=== PATIENT | female | born 1945 | race Caucasian/White ===

== ENCOUNTER 2024-11-29 10:44 | Outpatient (CLI) | payer MEDICARE, SELFPAY ==
--- OUTSIDE RECORDS SUMMARY | 2024-11-29 02:30 | XMS_ITS | Continuity of Care Document ---
Author Organization [facility] Address [address] [place] [address] Phone Care Team Providers Care Route Sales Manager Name Role Phone Surinder Marcial MD, FACS Unavailable Unavailab le Allergies, Adverse Reactions, Alerts Substance Reaction Status Criticality Sulfa (Sulfonamide Antibiotics) Active No Information Medications Medication Instructions Dosage Effective Dates (start - stop) Status Comments Zantac 150 mg Tab take 1 tablet (150MG) by ORAL route 2 times every day - Active Amitriptyline 25 mg Tab take 1 tablet (25MG) by ORAL route every day at bedtime 25 MG - Active Atorvastatin 20 mg Tab take 1 tablet (20MG) by ORAL route every day 20 MG - Active Benicar 20 mg Tab take 1 tablet (20MG) by ORAL route every day 20 MG - Active Arthrotec 50 50 mg-200 mcg Tab take 1 tablet by ORAL route 3 times every day 1.00 tablet - Active Flaxseed Oil 1,000 mg Cap - Active Fish Oil 1,000 mg Cap - Active Procedures Procedure Date Post-op Follow-up Visit Post-op Follow-up Visit Post-op Follow-up Visit Removal Of Eye Lesion Post-op Follow-up Visit Post-op Follow-up Visit Removal Of Eye Lesion Office/outpatient Visit, [facility] Certified EMR Advance Directives Directive Yes / No Effective Date File Name Resuscitation Not Answered N/A N/A Life Support Not Answered N/A N/A Intubation Not Answered N/A N/A Antibiotics Not Answered N/A N/A IV Fluid Support Not Answered N/A N/A Tube Feed Not Answered N/A N/A Other Directive N/A N/A WARNING:The information contained in this section is historical and is provided for information only and does not constitute a legal document or any assurance that the information is still accurate. Please verify the information with the carr of the legal document before using it for clinical purposes. Encounters Encounter Description Practice Location Reason(s) For Visit Diagnoses Date Provider Providers Copied on Encounter [facility] [address] [facility], [address], [place], [place], [address], tel:[phone] SEC [place] Profession[place] blurry vision (chief complaint) No Information 3 Aggie Cadena. [facility] [address], [address], [place], [place], [address], [place]. tel:[phone] Referring Provider: Surinder Ryan, [email or web address], [place], [address]. tel:[phone] [facility], [facility] [address], [place], [place], [address], tel:[phone] SEC [place] Profession[place] a comprehensiv e exam (chief complaint) FOLLOW-UP SURGERY NOS 2 Wankum Davon. [address] [facility] [place], [place], [address], [place]. tel:[phone] Referring Provider: Surinder Ryan, [email or web address], [place], [address]. tel:[phone] [facility] [address] [facility], [facility] [address], [place], [place], [address], tel:[phone] SEC [place] Profession[place] a comprehensiv e exam (chief complaint) No Information 0 2 Wankum Davon. [address] [facility], [facility] [address], [place], [place], [address], [place]. tel:[phone] [facility], [address], [place], [place], [address], [place] tel:[phone] SEC [facility] [place] No Information Dec-0 7-201 [address] Agg[address] Surinder[address] [place] [address] [employer] [facility], [address], [place], [place], [address], [place]. tel:[phone] Referring Provider: Crys Marmolejo OD, [address] [facility], [place], [address]. tel:[phone] [facility], [address], [place], [place], [address], [place] [phone] SEC [place] Profession[place] eyes doing well, without complaint. (chief complaint) No Information Nov-1 3-201 2 [place] Surinder. [address] [place] [address], [address], [place], [place], [address], [place]. tel:[phone] [facility], [address], [place], [place], [address], [place] [phone] SEC [place] Profession[place] a comprehensiv e exam (chief complaint) FOLLOW-UP SURGERY NOS Oct-0 9-201 2 Aggie Surinder. [address] [place] [address], [address], [place], [place], [address], [place]. tel:[phone] Referring Provider: Crys Marmolejo OD, [address] [facility], [place], [address]. tel:[phone] [facility], [address] [place] [address] [address], [place], [place], [address], [place] tel:[phone] SEC [facility] [place] No Information Oct-0 5-201 2 [place] Surinder. [address] [place] [address], [address], [place], [place], [address], [place]. tel:[phone] Referring Provider: Crys Marmolejo OD, [address] [facility], [place], [address]. tel:[phone] Office/outpa tient Visit, [facility], [address] [facility], [place], [place], [address], [place] tel:[phone] SEC Brian Hardin burning (chief complaint) NODULAR CORNEA DEGEN Sep- 0-201 2 Aggie Cadena. [address], [address], [place], [place], [address], [place]. tel:[phone] Family History Family Member Type Diagnosis Age At Onset Mother Problem (finding) glaucoma Payers Payer name Insurance type Covered green party ID Authoriza tion(s) No Information Social History Type Description Quantity Date Captured Comments Alcohol Use Details Unknown Caffeine Use Details Unknown Tobacco Use Status No Information Smoking Status No Information Sex Female Chief Complaint And Reason For Visit From encounter dated '11/08/2012 14:00'. blurry vision (chief complaint) Reason For Referral Reason For Referral No Information History Of Present Illness Encounter Date Complaint History Of Prese nt Illness No Information Functional Status Date Functional Assessmen t No Information Instructions Date Instruction Additional Infor chelsey - 1 yr complete Related to FOLLO W-UP SURGERY NOS FOLLOW-UP SURGERY NO S, OS -Early Drusen OU - Discussed post op course with pt. Rec increase ATs, rec AREDS samples given Related to FOLLOW-UP SURGERY NOS FOLLOW-UP SURGERY NO S, OS - BCL in place-5 day s/p SK-established, stable - will continue to monitor - BCL removed. Recommends ATs for dry surface OU. D/c Tobramycin. Taper Pred 1% BID next few days then d/c. Pt to see LAG one more time. Instructed to return to clinic if eye gets painful for new BCL. Related to FOLLOW-UP SURGERY NOS - 1 month w/ LAG Related to FOLL OW-UP SURGERY NOS FBS s/p SK with oily buildup on co - new cl placedAT prn - keep appt - 4-6 months follow up Related t o FOLLOW-UP SURGERY NOS FOLLOW-UP SURGERY NO S, OD - Ok to continue using ursula and ATs as needed. Discussed proceeding with SK OS if desired, Pt understands this can be done when desired.Discussed incomplete lid closure when sleeping. Pt aware she can also tape her eyelids, and wear goggles, air humidifier are some of the more mild options Related to FOLLOW-UP SURGERY NOS FOLLOW-UP SURGERY NO S, OD - BCL removed at slit lamp. CSM and decrease to BID tomorrow, then DC but continue ATs. Discussed refractive status after SK. Pt can proceed if desired with SK OS, pt understands r/a/b and will schedule if desired. 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 Pt understands r/a/b of this procedure and pt elects to have SK OD 1st. Discussed CTL wear in the future pt has worn RGPs in the past.Letter dictated to Dr. 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
--- OUTSIDE RECORDS SUMMARY | 2024-11-29 02:30 | XMS_ITS | Encounter Summary ---
Author Organization [facility] Address [address] [place] [address]. [place] [address] [place] [address] Care Team Providers Care Kennel Attendant Name Role Phone Lester Britt MD Primary Care Provider Jean Vogel MD Unavailable Unavailable Paco Casey MD Unavailable [phone] Encounter Details Date Type Department Care Team (Late st Contact Info) Description 04/08/2019 Abstract SFL CONVERSION [address] [place] [address] , Generic Conversion, Social History Tobacco Use Types Packs/Day Years Used Date Smoking Tobacco: Never Smokeless Tobacco: Never Comments Unknown Sex and Gender Information Value Date Recorded Sex Assigned at Not on file Legal Sex Female 9:02 PM CDT Gender Identity Not on file Sexual Orientation Not on file documented as of this encounter Plan of Treatment Not on file documented as of this encounter Visit Diagnoses Not on filedocumented in this encounter Care Teams Kennel Attendant Relationship Specialty Start Date End Date Lester Britt MD [address] [place] [phone] PCP - General FAMILY PRACTICE 09/15/18 Jean Vogel MD [address] [place] [phone] INTERVENTIONAL CARDIOLOGY 09/15/18 10/04/19 Paco Casey MD [address] [place] [address] [address] [place] Environmental Sampler CARDIOVASCULAR DISEASE 10/05/19 documented as of this encounter
--- OUTSIDE RECORDS SUMMARY | 2024-11-29 02:30 | XMS_ITS | Data Portability ---
Author Organization [facility], [address] [facility] ([place]) Address [address] [place] [address] Care Team Providers Care Procurement Director Name Role Phone ABEL MEYERS Primary Care Provider Assessment Encounter Date Assessment Date Assessment LastModified by Organization Details LastModified Time 07/11/2024 07/11/2024 History: Bing giraldo s a 78-year-old female referred by Dr. Meyers regarding left knee pain. She has had left knee pain and stiffness for about 3 months. The pain varies between a 2 and an 8/10. The pain is worse with walking and better with rest and ice. She says it is an achy type pain that is sharp occasionally. It does occur with standing. It pops occasionally. There is no catching or locking. The pain is constant. It does radiate down her leg. It is hard to walk, as well as have pain at night. She says she has tried meloxicam, which does help her mood better, as well as lotions and creams. She had 6 weeks of physical therapy; it did not help. She has not had any injections. Social History: Denies smoking and alcohol use. She is retired. Review of Systems: Complete 12-point review of systems is negative except for heartburn, constipation, joint stiffness, swelling, weakness, pain, and back pain. Intake form dated today was independently reviewed and signed for review of symptoms, past medical history, social history, surgical history and family medical history. Physical examination: Head is atraumatic, normocephalic. Mood and affect are appropriate. The patient answers questions appropriately. The eyes are without scleral icterus. The chest exam shows no use of accessory muscles. The patient has full range of motion of the lumbar spine. Patient has normal sensation throughout the bilateral lower extremities. The skin is without edema or jaundice bilaterally. The lumbar exam shows no pain with straight leg raise testing. She has pain along the medial joint line, left knee, negative right knee. Pain with Aneesh's maneuver of the left knee, negative right knee. There is mild swelling of the left knee, negative right knee. No varus or valgus laxity of the bilateral knees. X-rays of the left knee were independently reviewed from [facility] and show moderately severe left knee patellofemoral joint osteoarthritis. Assessment: 1. Moderately severe left knee patellofemoral joint osteoarthritis, failed physical therapy. Plan: Clinical findings were discussed with the patient. I recommended an MRI of the left knee to make sure she does not have a stress fracture of the medial compartment versus a meniscus tear. She will follow up after MRI to discuss treatment options. [email or web address] Not available 07/11/2024 16:17:08 08/01/2024 08/01/2024 History: Bing returns for follow-up of her left knee. Overall, her left knee is about the same. It is about a 3/10. She had failed physical therapy. She has had pain now for the past 4 months. She says it is worse with walking and better with rest and ice. It varies between a 2 and an 8/10. She says that the pain is mostly medial. It does radiate down her leg. She is also getting some pain in her hip. She has tried meloxicam as well as lotions and creams. She had physical therapy for 6 weeks without relief of symptoms, but no injections. Physical Examination: She has 1+ valgus instability of the left knee, negative right knee. She has pain along the medial joint line left knee, negative right knee. She walks with a mildly antalgic gait. Her EHL is 5/5. X-rays of the left knee and MRI were independently reviewed from [facility] and show a left knee medial femoral condyle insufficiency fracture. The MRI is independently reviewed and shows a medial meniscus root tear as well as a medial femoral condyle insufficiency fracture as well as severe arthritis in the medial compartment as well as the patellofemoral compartment. Assessment: 1. Left knee medial femoral condyle insufficiency fracture. 2. Left knee medial and patellofemoral compartment osteoarthritis. 3. Medial meniscus root tear. Plan: Clinical and radiographic findings were discussed with the patient. I recommended conservative management of the left knee to unload the medial femoral condyle insufficiency fracture. I think this is likely caused from the medial meniscus root tear. I did recommend conservative treatment with the auto adjudication specialist brace and minimal activity at this time. Her other option was using a walker and keeping weight off her leg. She chose the brace. She is going to follow-up in 1 month with repeat x-rays, 4 views standing, of the left knee. anc Not available 08/01/2024 10:51:57 09/19/2024 09/19/2024 History: Bing returns for follow-up of her left knee. She is still having some discomfort in her left knee, but it is much improved since wearing the auto adjudication specialist brace. She has not done any physical therapy. She says there is still a little bit of swelling. She denies any fever, chills, catching or locking. Physical Examination: She has minimal pain along the medial joint line left knee, negative right knee. No varus or valgus laxity of the right knee. Valgus laxity 1+ of the left knee. She walks with a minimally antalgic gait. Full range of motion of the left knee. X-rays of the left knee were independently reviewed today from [facility], 4 views standing, compared to 3 views non-weightbearing from April, as well as the MRI of the left knee from early September. This showed the medial meniscus root tear with medial femoral condyle insufficiency fracture. I can now see the medial femoral condyle insufficiency fracture on x-ray. There is evidence of healing. There is moderate medial compartment osteoarthritis noted. Assessment: 1. Moderately severe left knee medial compartment osteoarthritis with history of medial meniscus root tear with resulting medial femoral condyle insufficiency fracture, healing. Plan: Clinical findings were discussed with the patient. I recommended conservative management of her left knee. She should continue to wear her auto adjudication specialist brace. I recommended she start some physical therapy for strengthening. Follow up again in 2 months with x-rays of the left knee, 4 views standing. anc Not available 09/19/2024 22:34:15 11/21/2024 11/21/2024 History: Bing returns for follow-up of her left knee. Overall she feels more than 50% better. She has been discharged from formal physical therapy and has transition to home exercise program. She is still wearing her auto adjudication specialist brace under her clothing. She takes meloxicam rarely for pain. Her pain is only a 3 out of 10 with exertion. She says that she has decreased her walking overall. She does feel slightly unstable if she does not wear her brace but there is no catching or locking. Physical examination: She has full range of motion of the right knee from 0 to 130 degrees. The left knee shows 0 to 120 degrees range of motion. There is pain with deep flexion and Aneesh's maneuver of the left knee and mild on the right knee. There is a mild effusion of the left knee and negative on the right knee. She walks with a nonantalgic gait. Ankle dorsiflexion is 5 out of 5 bilaterally. There is 1+ valgus laxity of the left knee. X-rays of the left knee were independently reviewed from [facility] today. Previous radiographs as well as MRI of the left knee from some months ago and show a left knee medial meniscus root tear, medial femoral condyle insufficiency fracture. There is no progression of the fracture on the plain radiographs obtained today. Assessment: 1. Left knee moderately severe osteoarthritis with medial meniscus root tear and healing medial femoral condyle insufficiency fracture. Plan: Clinical and radiographic findings were discussed the patient. I recommended she slowly transition back to walking without a brace. She will continue with a home exercise program. She will follow-up again in 3 months with x-rays 4 views of the left knee standing. [email or web address] Not available 11/21/2024 11:20:46 Plan of Treatment Reminders Order Date Submit Date Provider Last Modified By Organization Details Last Modified Time Details Appointments Establish ed Patient 10.EST 2024 10:00A M Dr. Marvel Islas Not available Not available Not available Lab None recorded. Referral None recorded. Procedures None recorded. Surgeries None recorded. Imaging None recorded. Medication Orders None recorded. Patient TargetsNo targets recorded. Patient InstructionsNo instructions recorded. Reason for Referral None Reported. Results Created Date Observation Date Name Description Value Unit Range Abnormal Flag Note LastModifiedBy Organization Detail LastModifiedTime 07/10/20 24 04/12/2024 XR, knee, 3 view No observ ation record ed. [email or web address] Not Available 2023 10:20:10 08/10/20 24 04/12/2024 XR, knee, 3 view No observ ation record ed. [email or web address] Not Available 2023 10:10:25 09/05/20 MRI, knee, w/o contr ast No observ ation record ed. [address] (Radiology) [address] [place], [address], 09/17/2024 09:38:44 09/15/20 24 07/25/2024 MRI, lower extre mity joint (s), w/o contr ast No observ ation record ed. [place] [id number] [place], [address], 11/11/2024 21:01:04 Result Notes None recorded. Problems Name Problem SNOMED Code Status Onset Date Resolution Date Notes Provider Name and Address Organization Details Recorded Time Osteoarthri tis of left knee joint 5328405328109 09 Active 2023 Marvel Islas MD [address] [place] [address], [phone], [facility] 4 08:50:24 Closed fracture distal femur, medial condyle 342003401 Active 2023 Marvel Islas MD [address] [place] [address], [phone], [facility] 4 09:15:08 Tear of medial meniscus of knee 362736294 Active 2023 Marvel Islas MD [address] [place] [address], [phone], [facility] 4 09:39:09 Problem Notes None recorded. Procedures Surgical History Date Name Laterality Status Provider Name and Address Organization Details Recorded Time Colonoscopy with biopsy completed Not Available Health Note 11/20/2024 14:15:45 Removal of gallbladder completed Not Available Health Note 11/20/2024 14:15:45 Removal of tonsils completed Not Available Health Note 11/20/2024 14:15:45 Imaging Results Imaging Date Name Status LastModified by Organiz ation Details LastModified Time 04/12/2024 XR, knee, 3 view completed [place] [id number] Information not available 07/11/2024 10:20:10 04/12/2024 XR, knee, 3 view completed [email or web address] Information not available 08/10/2024 10:10:25 09/05/2024 MRI, knee, w/o contrast completed [address] (Radiology) [address] [place], [address], 09/17/2024 09:38:44 07/25/2024 MRI, lower extremity joint(s), w/o contrast completed [address] [place], [address], 11/11/2024 21:01:04 Procedure Notes None recorded. Medical Equipment None Reported. Allergies Allergen ID Allergen Name Allergen Category Reaction Reaction Severity Criticality Documentation Date Start Date Code Code System Note Provider Name and Address Organization Details Recorded Time [id number] 2824e Substance with sulfonami de structure and antibacte rial mechanism of action (substanc e) medicatio n Not available Not available Not available 11/29/20232019 30676 8003 SNOMED Not Available Not Available Not Available [id number] 2932655d4 2824e Product containin g angiotens in-conver ting enzyme inhibitor (product) medicatio n Not available Not available Not available 11/29/20232019 83008 009 SNOMED Not Available Not Available Not Available Medications Name Sig Start Date Stop Date Status Note LastModified by Organization Details LastModified Time nystatin 100,000 unit/mL oral suspension SWISH AND SPIT 5 ML BY MOUTH THREE TIMES DAILY active Not Available Not Available No t Available atorvastatin 20 mg tablet active Not Available Not Available Not Available atorvastatin 10 mg tablet active Not Available Not Available Not Available fluconazole 150 mg tablet TAKE 1 TABLET BY MOUTH NOW AND REPEAT IN 72 HOURS active Not Available Not Available Not Available fluconazole 200 mg tablet TAKE 1 TABLET BY MOUTH A ONE TIME DOSE active Not Available Not Available No t Available meloxicam 15 mg tablet active Not Available Not Available No t Available sucralfate 1 gram tablet TAKE 1 TABLET BY MOUTH 4 TIMES DAILY BEFORE MEAL(S) AND AT BEDTIME active Not Available Not Available N ot Available penicillin V potassium 500 mg tablet active Not Available Not Available Not Available levofloxacin 250 mg tablet TAKE 1 TABLET BY MOUTH ONCE DAILY FOR 3 DAYS active Not Available Not Available No t Available amoxicillin 875 mg tablet TAKE 1 TABLET BY MOUTH TWICE DAILY active Not Available Not Available No t Available lisinopril 10 mg tablet active Not Available Not Available Not Available losartan 25 mg tablet TAKE 1 TABLET BY MOUTH ONCE DAILY active Not Available Not Available No t Available omeprazole 20 mg capsule,blaze yed release TAKE 1 CAPSULE BY MOUTH TWICE DAILY active Not Available Not Available No t Available amoxicillin 250 mg capsule TAKE 1 CAPSULE BY MOUTH TWICE DAILY active Not Available Not Available No t Available dicyclomine 10 mg capsule TAKE 1 CAPSULE BY MOUTH 4 TIMES DAILY active Not Available Not Available Not Available amoxicillin 875 mg-potassium clavulanate 125 mg tablet TAKE 1 TABLET BY MOUTH TWICE DAILY FOR 10 DAYS active Not Available Not Available No t Available Prilosec OTC 20 mg tablet,delay ed release active Not Available Not Available N ot Available nitrofuranto in monohydrate/ macrocrystal s 100 mg capsule TAKE 1 CAPSULE BY MOUTH TWICE DAILY active Not Available Not Available No t Available Paxlovid 300 mg (150 mg x 2)-100 mg tablets in a dose pack TAKE 3 TABLETS TOGETHER (TWO 150 MG NIRMATRELVI R TABLETS AND ONE 100 MG RITONAVIR TABLET) BY MOUTH TWICE DAILY FOR 5 DAYS. active Not Available Not Available No t Available Vitals Date Recorded Body height Provider Name an d Address Organization Details Last Updated DateTime 07/11/2024 160.02 cm [facility] 07/11/2024 10:09:24 Date Recorded Body mass index (BMI) Body weight Provider Name and Address Organization Details Last Updated DateTime 07/11/2024 27.1 kg/m2 26891.63 g [facility] 07/11/2024 10:09:27 Date Recorded Heart rate Provider Name an d Address Organization Details Last Updated DateTime 07/11/2024 70 /min [facility] 07/11/2024 10:09:37 Date Recorded Oxygen saturation Oxygen saturation in Arterial blood by Pulse oximetry Provider Name and Address Organization Details Last Updated DateTime 07/11/2024 97 % 97 % Nia [facility] 07/11/2024 10:09:40 Date Recorded Body height Provider Name an d Address Organization Details Last Updated DateTime 08/01/2024 160.02 cm Maria Antonia Reyes [facility] 08/01/2024 09:03:21 Date Recorded Body mass index (BMI) Body weight Provider Name and Address Organization Details Last Updated DateTime 08/01/2024 26.9 kg/m2 52092.04 g Maria Antonia Reyes [facility] 08/01/2024 09:03:30 Date Recorded Heart rate Provider Name an d Address Organization Details Last Updated DateTime 08/01/2024 97 /min Maria Antonia Reyes [facility] 08/01/2024 09:03:41 Date Recorded Oxygen saturation Oxygen saturation in Arterial blood by Pulse oximetry Provider Name and Address Organization Details Last Updated DateTime 08/01/2024 97 % 97 % Maria Antonia Reyes [facility] 08/01/2024 09:03:49 Date Recorded Body height Provider Name an d Address Organization Details Last Updated DateTime 09/19/2024 160.02 cm Nia [facility] 09/19/2024 10:52:33 Date Recorded Body mass index (BMI) Body weight Provider Name and Address Organization Details Last Updated DateTime 09/19/2024 26.9 kg/m2 66243.04 g Nia [facility] 09/19/2024 10:52:41 Date Recorded Heart rate Provider Name an d Address Organization Details Last Updated DateTime 09/19/2024 66 /min Nia [facility] 09/19/2024 10:52:51 Date Recorded Oxygen saturation Oxygen saturation in Arterial blood by Pulse oximetry Provider Name and Address Organization Details Last Updated DateTime 09/19/2024 98 % 98 % [facility] 09/19/2024 10:52:56 Date Recorded Body height Provider Name an d Address Organization Details Last Updated DateTime 11/21/2024 160.02 cm Gwendolyn Murillo [facility] 11/21/2024 10:53:38 Date Recorded Body mass index (BMI) Body weight Provider Name and Address Organization Details Last Updated DateTime 11/21/2024 26.7 kg/m2 23327.45 g Gwendolyn Murillo [facility] 11/21/2024 10:53:44 Date Recorded Heart rate Provider Name an d Address Organization Details Last Updated DateTime 11/21/2024 65 /min Gwendolyn Murillo [facility] 11/21/2024 10:53:55 Date Recorded Oxygen saturation Oxygen saturation in Arterial blood by Pulse oximetry Provider Name and Address Organization Details Last Updated DateTime 11/21/2024 99 % 99 % Gwendolyn [facility] 11/21/2024 10:53:58 Date Recorded Systolic blood pressure Diastolic blood pressure Provider Name and Address Organization Details Last Updated DateTime 07/11/2024 171 mm[Hg] 81 mm[Hg] Nia [facility] 07/11/2024 10:09:32 Date Recorded Systolic blood pressure Diastolic blood pressure Provider Name and Address Organization Details Last Updated DateTime 08/01/2024 156 mm[Hg] 83 mm[Hg] Maria Antonia Reyes [facility] 08/01/2024 09:03:36 Date Recorded Systolic blood pressure Diastolic blood pressure Provider Name and Address Organization Details Last Updated DateTime 09/19/2024 168 mm[Hg] 79 mm[Hg] Nia [facility] 09/19/2024 10:52:48 Date Recorded Systolic blood pressure Diastolic blood pressure Provider Name and Address Organization Details Last Updated DateTime 11/21/2024 156 mm[Hg] 92 mm[Hg] Gwendolyn Murillo [facility] 11/21/2024 10:53:52 Social History Question Answer Notes LastModified by Organizat ion Details LastModified Time Tobacco Smoking Status Never Smoker Not Available Health Note 11/20/2024 14:15:45 Do You Have An Advance Directive? Yes [place] [id number] Information not available 11/20/2024 What Is Your Level Of Alcohol Consumption? None [email or web address] Information not available 11/20/2024 What Is Your Level Of Caffeine Consumption? Moderate [email or web address] Information not available 11/20/2024 What Is Your Code Status? Other [email or web address] Information not available 11/20/2024 Are You Currently Employed? No [email or web address] Information not available 11/20/2024 What Is Your Occupation? Retired [email or web address] Information not available 11/20/2024 How Many Times Per Week Do You Exercise? 1-2 Times Per Week [email or web address] Information not available 11/20/2024 What Was The Date Of Your Most Recent Tobacco Screening? 11/21/2024 [email or web address] Information not available 11/20/2024 What Is Your Relationship Status? [email or web address] Information not available 11/20/2024 Do You Use Any Illicit Or Recreational Drugs? No [email or web address] Information not available 11/20/2024 Sex: Unknown Functional Status Question Answer Note LastModified by Organization D etails LastModified Time What is your exercise level? Moderate [email or web address] Information not available 11/20/2024 Mental Status None recorded. Family History Relationship Description Onset Age of this Age Resolved Age Notes LastModified by Organization Details LastModified Time Mother Chronic obstructive pulmonary disease [email or web address] Not available 2024 14:15:44 Mother Heart disease [email or web address] Not available 2024 14:15:44 Mother Kidney disease [email or web address] Not available 2024 14:15:44 Sister Chronic obstructive pulmonary disease [email or web address] Not available 2024 14:15:44 Sister Hypertensive disorder [email or web address] Not available 2024 14:15:44 Sister Cerebrovascu lar accident [email or web address] Not available 14:15:44 Maternal Grandmother Chronic obstructive pulmonary disease [email or web address] Not available 2024 14:15:44 Maternal Grandmother Diabetes mellitus [email or web address] Not available 2024 14:15:44 Maternal Grandmother Heart disease [email or web address] Not available 2024 14:15:44 Maternal Grandmother Hypertensive disorder [email or web address] Not available 2024 14:15:44 Maternal Grandmother Hypercholest erolemia [email or web address] Not available 2024 14:15:44 Paternal Grandmother Chronic obstructive pulmonary disease [email or web address] Not available 2024 14:15:44 Paternal Grandmother Hypertensive disorder [email or web address] Not available 2024 14:15:44 Paternal Grandmother Hypercholest erolemia [email or web address] Not available 2024 14:15:44 Paternal Grandmother Cerebrovascu lar accident [email or web address] Not available 14:15:44 Medical History Condition Response High Blood Pressure Y COPD N Depression N Anxiety Disorder N Arthritis N Cancer N Stroke N Fibromyalgia N Kidney Disease N Attention-deficit Hyperactivity Disorder N Thyroid Problems N Anemia N Diabetes N Bleeding Disorder N Hyperlipidemia N Asthma N Seizures N Heart Disease N Osteoporosis N Gynecological HistoryNo gynecological history recorded. Obstetrics History GPAL:G 0 P 0 0 0 0 Past Encounters Encounter ID Performer Location Encounter Start Date Encounter Closed Date Diagnosis/Indication Diagnosis SNOMED-CT Code Diagnosis ICD10 Code Diagnosis Note [id number] [facility] [place] [address] 07/11/2024 10:07:04 07/11/2024 10:22:45 Osteoarthritis of left knee joint 8491712333 94790 M17.12 Additional diagnosis detail: Primary osteoarthr itis of left knee [id number] MD [facility] [place] [address] 08/01/2024 08:58:18 08/01/2024 09:17:34 Osteoarthritis of left knee joint 2736643570 77565 M17.12 Additional diagnosis detail: Primary osteoarthr itis of left knee Closed fra cture distal femur, medial condyle 023819819 S72.435D Additional diagnosis detail: Closed nondisplac ed fracture of medial condyle of left femur with routine healing, subsequent encounter [id number] MD [facility] [place] [address] 09/19/2024 10:23:09 09/19/2024 11:10:27 Closed fracture distal femur, medial condyle 862900689 S72.435D Additional diagnosis detail: Closed nondisplac ed fracture of medial condyle of left femur with routine healing, subsequent encounter Osteoarthr itis of left knee joint 5448786280 24445 M17.12 Additional diagnosis detail: Primary osteoarthr itis of left knee Tear of me dial meniscus of knee 078790213 S83.242A [id number] Marvel Islas MD [facility] [address] [place] [address] 11/21/2024 10:19:43 11/21/2024 11:21:13 Tear of medial meniscus of knee 901011206 S83.242A Closed fra cture distal femur, medial condyle 944071732 S72.435D Additional diagnosis detail: Closed nondisplac ed fracture of medial condyle of left femur with routine healing, subsequent encounter Osteoarthr itis of left knee joint 4022759640 04459 M17.12 Additional diagnosis detail: Primary osteoarthr itis of left knee Health Concerns Section Related Observation LastModified by Organization Detai ls LastModified Time None Recorded Concern Status LastModified by Organization Details LastModified Time None Recorded Advance Directives Directive Y: Payers Encounter Date Sequence Insurance Name Policy Number Policy Escal[place] Covered Member ID Escalante Member ID Guarantor Name 07/11/2024 1 [place] Bing L Jeovanny [id number] Bing L Jeovanny 08/01/2024 1 [employer] (MEDICARE REPLACEMENT PPO) [id number] Bing L Jeovanny [id number] Bing L Jeovanny 09/19/2024 1 [employer] (MEDICARE REPLACEMENT PPO) [id number] Bing L Jeovanny [id number] Bing L Jeovanny 11/21/2024 1 [employer] (MEDICARE REPLACEMENT PPO) [id number] Bing L Jeovanny [id number] Bing L Jeovanny Notes Date Note Type Note Provider Name and Address Organization Details Recorded Time 5 text/html Bing Bower a 79 year oldfemalepresenting for care. Marvel Islas MD [address] [place] [address], [address], [facility] [facility] 11/21/2024 17:49:05 OBGyn Episode No OBEpisode recorded.
--- OUTSIDE RECORDS SUMMARY | 2024-11-29 02:30 | XMS_ITS | Clinical Summary ---
Author Organization [facility] Address [address] [place] [address]. [place] [address] [place] [address] Care Team Providers Care Youth Specialist Name Role Phone Lester Britt MD Primary Care Provider Paco Casey MD Unavailable [phone] Allergies Active Allergy Reactions Criticality Noted Date Comments Sulfa Antibiotics Unknown Medications atorvastatin 20 MG tablet Take by mouth daily. 09/05/2018 Active diclofenac-misop rostol (ARTHROTEC 50) 50-0.2 MG tablet 02/10/2018 Ac tive carvedilol 6.25 MG tablet Take 1 tablet (6.25 mg total) by mouth 2 (two) times daily. 60 tablet 12 10/06/2018 Active Active Problems Problem Noted Date Diagnosed Date Palpitations 10/05/2018 Chest pain of uncertain etiology 10/05/2018 SVT (supraventricular tachycardia) ([facility]) 10/05/2018 Mixed hyperlipidemia 10/05/2018 HTN (hypertension) Family History Medical History Relation Comments Aneurysm Mother Heart Attack Paternal Grandmother Relation Status Comments Mother Paternal Grandmother Social History Tobacco Use Types Packs/Day Years Used Date Smoking Tobacco: Never Smokeless Tobacco: Never Comments Unknown Sex and Gender Information Value Date Recorded Sex Assigned at Not on file Legal Sex Female 9:02 PM CDT Gender Identity Not on file Sexual Orientation Not on file Last Filed Vital Signs Vital Sign Reading Time Taken Comments Blood Pressure 156/85 10/05/2018 5:35 PM CORE WINDER Pulse 64 10/05/2018 5:35 PM CORE WINDER Temperature - - Respiratory Rate - - Oxygen Saturation - - Inhaled Oxygen Concentration - - Weight 70.9 kg (156 lb 6.4 oz) 10/05/2018 5:35 P M CORE WINDER Height 160 cm (5' 3 ) 10/05/2018 5:35 PM CORE WINDER Body Mass Index 27.71 10/05/2018 5:35 PM CORE WINDER Plan of Treatment Health Maintenance Due Date Last Done Comments Hepatitis C 1965 DTaP, Tdap and Td Vaccines ( 1 - Tdap) 1966 Zoster Vaccines (1 of 2) 1997 Annual Medicare Wellness Visit 2012 Dexa Scan (General) 2012 RSV Immunization or 60+ Years (1 - 1-dose 75+ series) 2022 COVID-19 Vaccine (3 - 2023-2 5 season) 2024 01/31/2021, 01/03/2021 Influenza Adult (#1) 2024 08/17/2019, 08/19/2018 Pneumococcal Vaccine: 65+ Years Completed 09/02/2018, 08/10/2018, 08/03/2017 Meningococcal B Vaccine Aged Out No l onger eligible based on patient's age to complete this topic Meningococcal Vaccine Aged Out No fantasma gala eligible based on patient's age to complete this topic RSV Immunizations Under 20 Months Aged Out No longer eligible b ased on patient's age to complete this topic Insurance [employer] Care Teams Youth Specialist Relationship Specialty Start Date End Date Lester Britt MD [address] [place] [phone] PCP - General FAMILY PRACTICE 09/15/18 Paco Casey MD [address] [place] [id number] [place] [employer] CARDIOVASCULAR DISEASE 10/05/19
--- OUTSIDE RECORDS SUMMARY | 2024-11-29 02:30 | XMS_ITS | Clinical Summary ---
Author Organization [facility] Address [address] [place] [phone] Phone Care Team Providers Care Machine Operators Name Role Phone Lester Britt MD Primary Care Provider [phone] Allergies Active Allergy Reactions Criticality Noted Date Comments Miguel Inhibitors Cough Low 12/26/2019 Latex Rash Low 12/26/2019 Sulfa Dyne Rash Low 07/19/2012 Medications atorvastatin (LIPITOR) 20 mg Oral tablet Take 10 mg by mouth late in the day. Active MAG HYDROX/AL HYDROX/SIMETH (MAALOX ORAL) Take by mouth Continuous as needed. Active simethicone (GAS-X) 125 mg Oral Cap Take 125 mg by mouth Continuous as needed. Active MULTIVITAMIN ORAL Take 1 Tab by mouth daily. Active famotidine (PEPCID) 20 mg Oral tablet Take 20 mg by mouth daily. Active omeprazole (PriLOSEC) 20 mg Capsule, Delayed Release(E.C.) Take 1 Capsule (20 mg) by mouth 2 times daily before meals. 14 Capsule 9 Active Lactobac no.41/Bifidobac t no.7 (PROBIOTIC-10 ORAL) Take by mouth. PRN Active calcium as carbonate (TUMS ES) 750 mg (300 mg elemental) Tablet, Chewable Take 300 mg by mouth daily. Active lisinopriL (PRINIVIL) 5 mg tablet Take 5 mg by mouth daily. Active Active Problems Problem Noted Date Diagnosed Date Diverticulitis 01/05/2020 Rectal bleeding 01/05/2020 Elevated LFTs 01/05/2020 Dehydration 01/05/2020 S/P colonoscopy 05/15/2019 Overview (05/15/2019): 05/15/19- Colonoscopy: no polyps. Elevated cholesterol 07/19/2012 Chronic back pain 07/19/2012 Diverticulitis of colon 07/19/2012 Overview (07/19/2012): 2006 Encounters Date Type Department Care Team Description 11/22/2024 External Device Data [facility] ABSTRACTION Provider, Abstract 11/22/2024 External Device Data [facility] ABSTRACTION Provider, Abstract from Last 3 Months Immunizations Immunization Administration Dates Next Due Influenza Seasonal Unspecified Formulation IM PNEUMOVAX (PPSV23) pneumococ serjio polysaccharide 23-valent Vaccine 08/10/2018 Family History Medical History Relation Name Comments Colon Cancer Neg Hx Social History Tobacco Use Types Packs/Day Years Used Date Smoking Tobacco: Never Smokeless Tobacco: Never Tobacco Cessation:Counseling Given: Not Answered Alcohol Use Standard Drinks/Week Comments No 0 (1 standard drink = 0.6 oz pur e alcohol) Comments No Sex and Gender Information Value Date Recorded Sex Assigned at Not on file Legal Sex Female 6:10 AM UM SPECIALIST Gender Identity Not on file Sexual Orientation Not on file Occupation Industry Job Start Date Job End Date Not on file Not on file Not on file Not on file Last Filed Vital Signs Vital Sign Reading Time Taken Comments Blood Pressure 139/72 12/27/2023 2:16 PM UM SPECIALIST Pulse 73 09/08/2022 11:50 AM UM SPECIALIST Temperature 37 ??C (98.6 ??F) 01/06/2020 12:28 PM UM SPECIALIST Respiratory Rate 18 12/09/2022 10:56 AM UM SPECIALIST Oxygen Saturation 97% 09/08/2022 11:50 AM UM SPECIALIST RA Inhaled Oxygen Concentration - - Weight 71.2 kg (157 lb) 12/27/2023 2:16 PM UM SPECIALIST Height 160 cm (5' 3 ) 12/27/2023 2:16 PM UM SPECIALIST Body Mass Index 27.81 12/27/2023 2:16 PM UM SPECIALIST Plan of Treatment Health Maintenance Due Date Last Done Comments DTAP/TDAP/TD VACCINES (1 - Tdap) 1966 ZOSTER VACCINE (1 of 2) 1997 OSTEOPOROSIS SCREENING 2012 PNEUMOCOCCAL VACCINE 65+ YEA RS (2 of 2 - PCV) 08/10/2019 08/10/2018 RSV VACCINE (60+ or ) (1 - 1-dose 75+ series) 2022 INFLUENZA VACCINE (#1) 2024 08/17/2019 COLORECTAL SCREENING Discontinued 05/15/2019, 05/15/2019, 09/28/2012 Colorectal Cancer Screening Discontinued FIT-DNA Q 3 years Discontinued FIT/FOBT Q 1 year Discontinued Flex Sig/CT Colonography Q 5 years Discontinued Medical Devices Implanted Type Area Music Writer Device Identifier Shelf Expiration Date Model / Serial / Lot Clip [employer] [id number] - Csc - [id number] Implanted:Qty: 1 on 12/29/2019 by Baltazar Nye MD at [facility] Clip N/A: Pelvis TELEFLEX- WECK CLOSURE SYS 03/12/2024 [id number] / / [id number] Description:3 clips used Procedures Procedure Name Priority Date/Time Associated Diagnosis Comments COLONOSCOPY REPORT 05/15/2019 10 :05 AM CDT from Last 3 Months or Most Recently Relevant to Health Maintenance Results * COLONOSCOPY REPORT (05/15/2019 10:05 AM CDT) Narrative Procedure Note Steven Dyer MD - 05/15/2019 10:05 AM CDT [facility] Patient Name: Bing Up Procedure Date: 05/15/2019 Date of : 1945 Admit Type: Outpatient Attending MD: Steven Dyer MD Procedure: Colonoscopy Indications: Abdominal pain in the left lower quadrant, recent episode of diverticullitis, rectal bleeding Providers: Steven Dyer MD Referring MD: Lester Britt MD Medicines: Monitored Anesthesia Care Complications: No immediate complications. Procedure: Informed consent was obtained for the procedure, including moderate sedation after risks were discussed. Based on the pre-procedure assessment, including review of the patient's medical history, medications, allergies, and review of systems, the patient was deemed to be an appropriate candidate for sedation. A timeout was performed. Continuous ECG monitoring, pulse oximetry, blood pressure monitoring, and direct observation were performed. The colonoscope was introduced through the anus and advanced to the cecum, identified by appendiceal orifice and ileocecal valve. The colonoscopy was performed with ease. The patient tolerated the procedure well. The quality of the bowel preparation was excellent. Estimated Blood Loss: None. Findings: Moderate internal hemorrhoids were found during retroflexion. Many small and large-mouthed diverticula were found in the sigmoid colon and descending colon. The was no stricture. The examination was otherwise negative. No polyps were seen. The cecum and ileocecal valve were normal. Impression: - Small internal hemorrhoids. - Diverticulosis in the sigmoid colon and in the descending colon. - No polyps seen. Recommendation: - High fiber diet. - Continue present medications. Steven Dyer MD 05/15/2019 10:04:55 AM This report has been signed electronically. Number of Addenda: [address]; [place] [address] Steven Dyer MD GI PROCEDURE ORDERABLES Final Re sult from Last 3 Months or Most Recently Relevant to Health Maintenance Insurance [facility] Advance Directives For more information, please contact: [phone] * Full Code (Latest Code Status on File) Date Activated Date Inactivated Comments 01/05/2020 3:17 PM 01/06/2020 4:41 PM * Full Code Date Activated Date Inactivated Comments 12/29/2019 10:31 PM 01/02/2020 12:55 AM * Full Code Date Activated Date Inactivated Comments 12/29/2019 1:09 PM 12/29/2019 10:30 PM * Full Code Date Activated Date Inactivated Comments 10/05/2019 7:05 AM 10/05/2019 10:59 AM * Full Code Date Activated Date Inactivated Comments 05/15/2019 8:15 AM 05/15/2019 12:38 PM Care Teams Machine Operators Relationship Specialty Start Date End Date Lester Britt MD [address] [place] [phone] PCP - General Family Practice 04/17/19
--- NOTE | 2024-11-29 11:00 | ECG_ITS ---
Test Date: 2024-11-29 11:05:41 Measurements Intervals [place] Rate: 66 P: 43 ME: 158 QRS: 24 QRSD: 82 T: 33 QT: 389 QTc: 409 Interpretive Statements SINUS RHYTHM No previous ECG available for comparison Electronically Signed On 11-29-2024 16:07:29 METAL HANDLER by Iva Vera M.D.
--- OUTSIDE RECORDS SUMMARY | 2024-11-29 11:58 | XMS_ITS | Clinical Summary ---
Author Organization [facility] Address [address] [place] [address] Phone Care Team Providers Care Checker Dump Grounds Name Role Phone EMERSON SophiaMARIAELENA Unavailable [phone] Reason for Visit and Chief Complaint The Chief Complaint is: cough, congestion, sore throat-green phlegm, intermittent fever, sinus pressure/headaches since last Wednesday Problems Includes: Problems addressed during this encounter and other active Problems Current Visit Onset Date Resolved Date Provider Conditio n Status Acute Bronchitis 02/19/2014 Unknown NORA MALCOLM M.D. Resolved Last Documented On 04/29/2014 2:26PM ; [facility] Note: Unchanged Sinusitis Acute 02/19/2014 Unknown NORA MURPHY M.D. Resolved Last Documented On 04/29/2014 2:26PM ; [facility] Note: Unchanged Past Visits Onset Date Resolved Date Provider Condition Status Urinary Tract Infection 04/29/2014 NORA MACHADO M.D. Active Last Documented On 04/29/2014 2:26PM ; [facility] Note: Unchanged CHRONIC PANCREATITIS 05/31/2013 JUDY TRIPLETT PA-C Active Last Documented On 3 3:22PM ; [facility] Diverticulitis of Colon 05/31/2013 LANDY VILLEDA PA-C Active Last Documented On 4 2:24PM ; [facility] ESOPHAGEAL REFLUX 05/31/2013 JUDY Gotti Active Last Documented On 3 3:22PM ; [facility] HYPERLIPIDEMIA NEC/NOS 05/31/2013 JUDY TEAGUE PA-C Active Last Documented On 3 3:22PM ; [facility] HYPERTENSION NOS 05/31/2013 JUDY Lynne Active Last Documented On 3 3:22PM ; [facility] IRRITABLE BOWEL SYNDROME 05/31/2013 JUDY SAWYER PA-C Active Last Documented On 3 3:22PM ; [facility] Plan of Treatment - Follow-up visit as needed with an office visit. - Last Documented On 02/19/2014 7:46PM ; [facility] Assessments Includes: Assessments from this encounter Findings - Acute sinusitis - Last Documented On 02/19/2014 7:46PM ; [facility] - Acute bronchitis - Last Documented On 02/19/2014 7:46PM ; [facility] Medical Equipment - Implanted Devices Includes: Current Devices No Medical Equipment Recorded Medications Includes: Medications discussed during this encounter and other current Medications New / Renewed during this visit NORA MACHADO M.D. on 02/19/2014 Amoxicillin-Pot Clavulanate 875-125 MG OR TABS Provider: NORA MACHADO M.D. 10 day supply: 20, 0 refills Diagnosis: AC SHUNGNAK SINUSITIS NOS Pharmacy: [email or web address] [employer] [facility], [address] - Last Documented On 04/30/2014 2:28PM By LORRAINE CEJA MD ; [facility] Promethazine-Codeine 6.25-10 MG/5ML OR SYRP Provider: NORA MACHADO M.D. 30 day supply: 4 fluid ounce, 0 refills Diagnos is: ACUTE SINUSITIS NOS 1 1/2 ts at hs for 7 days then prn Pharmacy: [facility] [employer] [facility], [address] - Last Documented On 04/30/2014 2:28PM By LORRAINE CEJA MD ; [facility] predniSONE 20 MG OR TABS Provider: HARLAN MACHADO M.D. 3 day supply: 12 tablet, 0 refills Diagnosis: ACUTE SINUSITIS NOS 4 tabs qd (start today) Pharmacy: [facility] [address] [facility] [address] - Last Documented On 04/30/2014 2:28PM By LORRAINE CEJA MD ; [facility] Current Medications (continue as prescribed) Lipitor 20 MG OR TABS 07/23/2014 Provider: Diagnosis: Last Documented On 07/23/2014 2:20PM By RISHI AGUDELO ; [facility] Amitriptyline HCl 25 MG OR TABS 04/30/2014 Provider: LORRAINE CEJA MD Diagnosis: Tapering doses: one tab ever y other day for 7 days, then twice weekly for 7 days Last Documented On 07/23/2014 2:13PM By RISHI AGUDELO ; [facility] Pyridium 200 MG OR TABS 04/27/2014 Provider: PRICILA MACHADO M.D. Diagnosis: URIN TRACT INFEC TION NOS Last Documented On 04/27/2014 10:34AM By NORA MACHADO MD ; [facility] NexIUM 40 MG OR CPDR 10/10/2013 Provider: LORRAINE CEJA MD Diagnosis: Last Documented On 07/23/2014 2:13PM By RISHI AGUDELO ; [facility] Arthrotec 50-0.2 MG OR TBEC 05/30/2013 Provider: LORRAINE CEJA MD Diagnosis: Last Documented On 07/23/2014 2:13PM By RISHI AGUDELO ; [facility] Past Medications on file metroNIDAZOLE 250 MG OR TABS 07/27/2014 - 08/06/2014 Provider: LANDY BRYAN PA-C Diagnosis: Dvrtcli Colon W/ O Hmrhg Do not drink alcohol with this medication Last Documented On 4 2:27PM By LANDY BRYAN PA-C ; [facility] Ciprofloxacin HCl 250 MG OR TABS 07/27/2014 - 08/06/2014 Provider: LANDY BRYAN PA-C Diagnosis: Dvrtcli Colon W/ O Hmrhg Last Documented On 4 2:27PM By LANDY BRYAN PA-C ; [facility] Atorvastatin Calcium 20 MG OR TABS 04/30/2014 - 10/27/2014 Provider: LORRAINE CEJA MD Diagnosis: HYPERLIPIDEMIA N EC/NOS Last Documented On 04/30/2014 2:30PM By LORRAINE CEJA MD ; [facility] Amitriptyline HCl 25 MG OR TABS 10/10/2013 - 4 Provider: LORRAINE CEJA MD Diagnosis: Last Documented On 10/10/2013 2:13PM By RISHI AGUDELO ; [facility] Vitamin D3 1.25 MG (31562 UT) OR CAPS 06/20/2013 - 08/15/2013 Provider: LORRAINE CEJA MD Diagnosis: URIN TRACT INFEC TION NOS take one capsule every 2 weeks for 8 weeks Last Documented On 06/20/2013 1:22PM By BOUBACAR BERTRAND LPN ; [facility] Medications Administered Includes: Administered Medications from this encounter No Administered Medications Recorded Vital Signs Includes: Vital Signs from this encounter Vital Name 02/19/2014 03:02P Blood Pressure Sitting R 136/94 BP Cuff Size Regular Temp-Tympanic (F) 97.2 Height (in) 63 Weight (lb) 157 Body Mass Index (kg/m2) 27.8 Body Surface Area (m2) 1.7 Last Documented: On 02/19/2014 3:04PM ; [facility] Results Includes: Results discussed during this encounter No Results Recorded For Specified Dates History of Present Illness Includes: History of Present Illness from this encounter OUMOU CELESTIN is a 68 year old female. Source of patient information was patient. - Not feeling fine - Feeling tired (fatigue) - Feeling poorly (malaise) - No fever - No chills - Do not shake the whole body - Headache - Sinus pain - The ears feel pressured on the right - On the left - Nasal discharge yellow /green - Purulent - Nasal passage blockage (stuffiness) - Sneezing - Sore throat comes and goes - Sore throat not triggered by swallowing - No excessive drooling - Cough during the day - During the night - Worse at night - Coughing up sputum - No dyspnea - Not expressed as feeling short of breath - No wheezing - Appetite not normal - Decreased appetite - Middle-night awakening Social History Description Last Updated Smoking status : Unknown if ever smoked 02/19/2014 Last Documented On 4 7:46PM ; [facility] A recent decrease in exercise activity 0 02/19/2014 Last Documented On 4 7:46PM ; [facility] Recent change in sleep 02/19/2014 Last Documented On 4 7:46PM ; [facility] No travel 02/19/2014 Last Documented On 4 7:46PM ; [facility] Procedures and Surgical History Includes: Procedures from this encounter Procedures Code Diagnosis Performing Provider Service L ocation Service Date the options include decongestants as needed per product instructions Last Documented On 4 7:43PM ; [facility] the options include close observation Last Documented On 4 7:43PM ; [facility] Pt to use prescription as ordered. Purpo se of and use of medication discussed.~ Last Documented On 4 7:43PM ; [facility] Pt to use OTC fever/pain product as need ed per product instruction.~ Last Documented On 4 7:43PM ; [facility] Pt to use OTC expectorant product as nee ded per product instruction.~ Last Documented On 4 7:43PM ; [facility] Pt to use OTC cough product as needed pe r product instruction.~ Last Documented On 4 7:43PM ; [facility] Clinical summary provided to patient Last Documented On 4 7:46PM ; [facility] Medical History Includes: Medical History addressed during this encounter Description Last Updated No exposure to a contagious disease 01/31 Last Documented On 4 7:46PM ; [facility] Family History Includes: Family History addressed during this encounter No Family History Recorded Review of Systems Includes: Review of Systems from this encounter Systemic: No systemic symptoms and no fever. Head: No head symptoms. Neck: No neck symptoms. Eyes: No eye symptoms. Otolaryngeal: Nasal discharge and sore throat. Breasts: No breast symptoms. Cardiovascular: No cardiovascular symptoms. Pulmonary: Cough. No wheezing. Gastrointestinal: No gastrointestinal symptoms. Genitourinary: No genitourinary symptoms. Endocrine: No endocrine symptoms. Hematologic: No hematologic symptoms. Musculoskeletal: No musculoskeletal symptoms. Skin: No skin symptoms. Mental Status Includes: Mental Status from this encounter Description Oriented to time, place, and person Functional Status Includes: Functional Status from this encounter No Functional Status Recorded Physical Exam Includes: Physical Exam from this encounter Allergies Includes: Active Allergies Substance Type Reaction Onset Date Resolved Date Statu s Sulfa Antibiotics Allergy 05/31/2013 A ctive Last Documented On 4 3:06PM ; [facility] Encounters Encounter Provider Location Date Check-In Time Check-Out Time Diagnosis SAME DAY SICK VISIT NORA MACHADO M.D. [facility] 02/20/20 14 2:54PM 11:59PM Sinusitis Acute,Acute Bronchitis Clinical Notes Includes: Clinical Notes from this encounter No Clinical Notes Recorded
--- OUTSIDE RECORDS SUMMARY | 2024-11-29 11:58 | XMS_ITS | Continuity of Care Document ---
Author Organization [employer] [facility] Address [address] [place] [address] Phone Care Team Providers Care On Site Manager Name Role Phone Surinder Marcial MD, [...] route every day 20 MG - Active Fish Oil 1,000 mg Cap - Active Flaxseed Oil 1,000 mg Cap - Active Arthrotec 50 50 mg-200 mcg Tab take 1 tablet by ORAL route 3 times every day 1.00 tablet - Active Procedures Procedure Date Post-op Follow-up Visit Post-op Follow-up Visit Post-op Follow-up Visit Removal Of Eye Lesion Post-op Follow-up Visit Post-op Follow-up Visit Removal Of Eye Lesion Office/outpatient Visit, [facility] Certified EMR Advance Directives Directive Yes / [...] Diagnoses Date Provider Providers Copied on Encounter [facility] docplanner [facility], [address], [place], [place], [address], tel:[phone] SEC [place] Profession[place] l blurry vision (chief complaint) No Information 3 Aggie Cadena. [facility] [employer], [address], [place], [place], [address], [place]. tel:[phone] Referring Provider: Surinder Ryan, [address], [place], [address]. tel:[phone] [facility], [facility] [address], [place], [place], [id number], tel:[phone] [place] Professiona [place] a comprehensiv e exam (chief complaint) FOLLOW-UP SURGERY NOS 2 Wankum Davon. [address] [facility] [place], [address], [place]. tel:[phone] Referring Provider: Surinder Ryan, [address], [place], [address]. tel:[phone] [facility] Waldron[facility]post[facility] Apps [facility] [employer] docplanner [facility], [facility] [address], [place], [place], [address], tel:[phone] SEC [place] Profession[place] a comprehensiv e exam (chief complaint) No Information 0 2 Wankum Davon. [address] [facility], [facility] A, [place], [place], [address], [place]. tel:[phone] [facility], [address], [place], [place], [address], [place] tel:[phone] SEC [facility] [place] No Information Dec-0 7-201 2 Aggie Surinder. [address] [place] [address] [employer] [facility], [address], [place], [place], [address], [place]. tel:[phone] Referring Provider: Crys Marmolejo OD, [address] [facility], [place], [address]. tel:[phone] [facility], [address], [place], [place], [address], [place] [phone] SEC [place] Professiona l eyes doing well, without complaint. (chief complaint) No Information Nov-1 3-201 2 Edison Surinder. [address] [place] [address], [address], [place], [place], [address], [place]. tel:[phone] [facility], [address], [place], [place], [address], [place] [phone] SEC [place] Professiona [place] a comprehensiv e exam (chief complaint) FOLLOW-UP SURGERY NOS Oct-0 9-201 2 Aggie Surinder. [address] [place] [address], [address], [place], [place], [address], [place]. tel:[phone] Referring Provider: Crys Marmolejo OD, [address] [facility], [place], [address]. tel:[phone] [facility], [id number] [place] [address] [address], [place], [place], [address], [place] tel:[phone] SEC [facility] [place] No Information Oct-0 5-201 2 Edison Surinder. [address] [place] [address], [address], [place], [place], [address], [place]. tel:[phone] Referring Provider: Crys Marmolejo OD, [address] [facility], [place], [address]. tel:[phone] Office/outpa tient Visit, [facility], [address] [facility] [address], [place], [place], [address], [place] tel:[phone] SEC Brian Hardin burning (chief complaint) NODULAR CORNEA DEGEN Sep- 0-201 2 Aggie Cadena. [address] [employer] [address], [address], [place], [place], [address], [place]. tel:[phone] Family History Family Member Type Diagnosis Age At Onset Mother Problem (finding) glaucoma Payers Payer name Insurance type Covered alliance party ID Authoriza tion(s) No Information Social [...]
--- OUTSIDE RECORDS SUMMARY | 2024-11-29 11:58 | XMS_ITS | Clinical Summary ---
Author Organization [facility] Address [address] [place] [phone] Phone Care Team Providers Care Rare/Endangered Species Specialist Name Role Phone Lester Britt MD Primary Care Provider Allergies Active Allergy Reactions Criticality Noted Date [...] Encounters Date Type Department Care Team Description 11/28/2024 External Device Data STL ABSTRACTION Provider, Abstract [...] on file Legal Sex Female 6:10 AM REHABILITATION CLERK Gender Identity Not on file Sexual Orientation Not on file Occupation Industry Job Start Date Job End Date Not on file Not on file Not on file Not on file Last Filed Vital Signs Vital Sign Reading Time Taken Comments Blood Pressure 139/72 12/27/2023 2:16 PM REHABILITATION CLERK Pulse 73 09/08/2022 11:50 AM REHABILITATION CLERK Temperature 37 ??C (98.6 ??F) 01/06/2020 12:28 PM REHABILITATION CLERK Respiratory Rate 18 12/09/2022 10:56 AM REHABILITATION CLERK Oxygen Saturation 97% 09/08/2022 11:50 AM REHABILITATION CLERK RA Inhaled Oxygen Concentration - - Weight 71.2 kg (157 lb) 12/27/2023 2:16 PM REHABILITATION CLERK Height 160 cm (5' 3 ) 12/27/2023 2:16 PM REHABILITATION CLERK Body Mass Index 27.81 12/27/2023 2:16 PM REHABILITATION CLERK Plan of Treatment Health Maintenance Due Date [...] years Discontinued Medical Devices Implanted Type Area Client Strategist Device Identifier Shelf Expiration Date Model / Serial / Lot Clip Murphyolok Lrg [id number] - Csc - [id number] Implanted:Qty: 1 on 12/29/2019 by Baltazar Nye MD at [facility] Clip N/A: Pelvis TELEFLEX- WECK CLOSURE SYS 03/12/2024 [id number] / / [id number] Description:3 clips used Procedures Procedure Name Priority Date/Time Associated Diagnosis Comments COLONOSCOPY REPORT 05/15/2019 10 :05 AM CDT from Last 3 Months or Most Recently Relevant to Health Maintenance Results * COLONOSCOPY REPORT (05/15/2019 10:05 AM CDT) Narrative Procedure Note Steven Dyer MD - 05/15/2019 10:05 AM CDT [facility] Endoscopy Patient Name: Bing Up Procedure Date: [...] of Addenda: [address]; [place] [address] Steven Dyer MD GI PROCEDURE ORDERABLES Final Re sult from Last 3 Months or Most Recently Relevant to Health Maintenance [facility] Advance Directives For more information, please contact: [phone] * Full Code (Latest Code Status on [...] 8:15 AM 05/15/2019 12:38 PM Care Teams Rare/Endangered Species Specialist Relationship Specialty Start Date End Date Lester Britt MD [address] [place] [phone] PCP - General Family Practice 04/17/19
--- OUTSIDE RECORDS SUMMARY | 2024-11-29 11:59 | XMS_ITS | Clinical Summary ---
Author Organization [facility] Address [address] [place] [phone] Phone Care Team Providers Care Heel Coverer Name Role Phone EMERSON Rocio.AidenMARIAELENA Unavailable [phone] Reason for Visit and Chief Complaint The Chief Complaint is: Burning and pain with urination started 2 days ago; no fever Problems Includes: Problems addressed during this encounter and other active Problems Current Visit Onset Date Resolved Date Provider Conditio n Status Urinary Tract Infection 04/29/2014 NORA MACHADO M.D. Active Last Documented On 04/29/2014 2:26PM ; [facility] Note: Unchanged Past Visits Onset Date Resolved Date Provider Condition Status Acute Bronchitis 02/19/2014 Unknown NORA MALCOLM M.D. Resolved Last Documented On 04/29/2014 2:26PM ; [facility] Note: Unchanged Sinusitis Acute 02/19/2014 Unknown NORA MURPHY M.D. Resolved Last Documented On 04/29/2014 2:26PM ; [facility] Note: Unchanged CHRONIC PANCREATITIS 05/31/2013 JUDY TRIPLETT PA-C Active Last Documented On 3 3:22PM ; [facility] Diverticulitis of Colon 05/31/2013 LANDY VILLEDA PA-C Active Last Documented On 4 2:24PM ; [facility] ESOPHAGEAL REFLUX 05/31/2013 JUDY Gotti Active Last Documented On 3 3:22PM ; [facility] HYPERLIPIDEMIA NEC/NOS 05/31/2013 JUDY TEAGUE PA-C Active Last Documented On 3 3:22PM ; [facility] HYPERTENSION NOS 05/31/2013 JUDY Lynne Active Last Documented On 3 3:22PM ; [facility] IRRITABLE BOWEL SYNDROME 05/31/2013 JUDY SAWYER PA-C Active Last Documented On 3 3:22PM ; [facility] Plan of Treatment Pending Tests Order Diagnosis Results Due Ordering Angi schaeffer In office procedures - *Clia Waived Labs Urinalysis URIN TRACT INFECTION NOS 05/11/14 NORA MACHADO M.D. Last Documented On 4 2:38PM ; [facility] Assessments Includes: Assessments from this encounter Findings - Urinary tract infection - Last Documented On 04/29/2014 2:26PM ; [facility] Medical Equipment - Implanted Devices Includes: Current Devices No Medical Equipment Recorded Medications Includes: Medications discussed during this encounter and other current Medications New / Renewed during this visit NORA MACHADO M.D. on 04/27/2014 Pyridium 200 MG OR TABS Provider: PRICILA MACHADO M.D. 2 day supply: 6 tablet, 0 refills Diagnosis: URIN TRACT INFECTION NOS Pharmacy: [facility] [address], [id number] - Last Documented On 04/27/2014 10:34AM By NORA MACHADO MD ; [facility] Ciprofloxacin HCl 500 MG OR TABS Provider: NORA MACHADO M.D. 10 day supply: 20 tablet, 0 refills Diagnosis: URIN TRACT INFECTION NOS Pharmacy: [facility] [address], [id number] - Last Documented On 07/23/2014 2:12PM By RISHI AGUDELO ; [facility] Current Medications (continue as prescribed) Lipitor 20 MG OR TABS 07/23/2014 Provider: Diagnosis: Last Documented On 07/23/2014 2:20PM By RISHI AGUDELO ; [facility] Amitriptyline HCl 25 MG OR TABS 04/30/2014 Provider: LORRAINE CEJA MD Diagnosis: Tapering doses: one tab ever y other day for 7 days, then twice weekly for 7 days Last Documented On 07/23/2014 2:13PM By RISHI AGUDELO ; [facility] NexIUM 40 MG OR CPDR 10/10/2013 Provider: LORRAINE CEJA MD Diagnosis: Last Documented On 07/23/2014 2:13PM By RISHI AGUDELO ; [facility] Arthrotec 50-0.2 MG OR TBEC 05/30/2013 Provider: LORRAINE CEJA MD Diagnosis: Last Documented On 07/23/2014 2:13PM By RISHI AGUDELO ; [facility] Past Medications on file metroNIDAZOLE 250 MG OR TABS 07/27/2014 - 08/06/2014 Provider: LANDY BRYAN PA-C Diagnosis: Dvrtcli Colon W/ O Hmrhg Do not drink alcohol with this medication Last Documented On 4 2:27PM By LANDY BRYAN PA-C ; [facility] Ciprofloxacin HCl 250 MG OR TABS 07/27/2014 - 08/06/2014 Provider: LANDY BRYAN PA-C Diagnosis: Dvrtcli Colon W/ O Hmrhg Last Documented On 4 2:27PM By LANDY BRYAN PA-C ; [facility] Atorvastatin Calcium 20 MG OR TABS 04/30/2014 - 10/27/2014 Provider: LORRAINE CEJA MD Diagnosis: HYPERLIPIDEMIA N EC/NOS Last Documented On 04/30/2014 2:30PM By LORRAINE CEJA MD ; [facility] Amitriptyline HCl 25 MG OR TABS 10/10/2013 - 4 Provider: LORRAINE CEJA MD Diagnosis: Last Documented On 10/10/2013 2:13PM By RISHI AGUDELO ; [facility] Vitamin D3 1.25 MG (22571 UT) OR CAPS 06/20/2013 - 08/15/2013 Provider: LORRAINE CEJA MD Diagnosis: URIN TRACT INFEC TION NOS take one capsule every 2 weeks for 8 weeks Last Documented On 06/20/2013 1:22PM By BOUBACAR BERTRAND LPN ; [facility] Medications Administered Includes: Administered Medications from this encounter No Administered Medications Recorded Vital Signs Includes: Vital Signs from this encounter Vital Name 04/27/2014 10:28A Blood Pressure Sitting (mmHg) 140/90 Temp-Tympanic (F) 96.9 Height (in) 63 Weight (lb) 155 Body Mass Index (kg/m2) 27.5 Body Surface Area (m2) 1.7 Last Documented: On 04/27/2014 10:29A M ; [facility] Results Includes: Results discussed during this encounter Urinalysis Manual Lab Entry Ordered by NORA MACHADO M.D. on 2013 Collected: Reported: 04/27/2014 17:40 Last Documented On 4 5:40PM ; [facility] Reviewed on 04/27/2014; All test results are final unless otherwise noted. color yellow (Straw-yellow) N (Normal) Last Documented On 4 5:40PM ; [facility] clarity clear (clear) N (Normal) Last Documented On 4 5:40PM ; [facility] Glucose neg (70-150mg/dL) N (Normal) Last Documented On 4 5:40PM ; [facility] Bilirubin neg N (Normal) Last Documented On 4 5:40PM ; [facility] Ketone neg N (Normal) Last Documented On 4 5:40PM ; [facility] SP Erwin 1.015 (1.003-1.040) N (Normal) Last Documented On 4 5:40PM ; [facility] pH 7.0 (5.00-9.00) N (Normal) Last Documented On 4 5:40PM ; [facility] Protein 30mg/dL A (Abnormal) Last Documented On 4 5:40PM ; [facility] Urobilinogen 0.2 (0.2-1.0 EU/dL) N (Normal) Last Documented On 4 5:40PM ; [facility] Nitrate neg N (Normal) Last Documented On 4 5:40PM ; [facility] Blood large A (Abnormal) Last Documented On 4 5:40PM ; [facility] Leukocyte moderate A (Abnormal) Last Documented On 4 5:40PM ; [facility] History of Present Illness Includes: History of Present Illness from this encounter HPI BIANCA FAWAD is a 68 year old female. Source of patient information was patient. - Not feeling fine - No fever - Normal appetite - Increased urinary frequency - Feelings of urinary urgency - Dysuria Social History Description Last Updated Smoking status : Unknown if ever smoked 04/29/2014 Last Documented On 4 2:26PM ; [facility] Procedures and Surgical History Includes: Procedures from this encounter Procedures Code Diagnosis Performing Provider Service L ocation Service Date the options include close observation Last Documented On 4 2:25PM ; [facility] Wanted to send urine for C&S but patient refused, does not want to pay for it because insurance will not pay for it, respected wish of the patient Last Documented On 4 2:25PM ; [facility] Pt to use OTC fever/pain product as need ed per product instruction.~ Last Documented On 4 2:25PM ; [facility] Pt to use prescription as ordered. Purpo se of and use of medication discussed.~ Last Documented On 4 2:25PM ; [facility] Clinical summary provided to patient Last Documented On 4 2:26PM ; [facility] Medical History Includes: Medical History addressed during this encounter No Medical History Recorded Family History Includes: Family History addressed during this encounter No Family History Recorded Review of Systems Includes: Review of Systems from this encounter Systemic: No systemic symptoms. Head: No head symptoms. Neck: No neck symptoms. Eyes: No eye symptoms. Otolaryngeal: No otolaryngeal symptoms. Breasts: No breast symptoms. Cardiovascular: No cardiovascular symptoms. Pulmonary: No pulmonary symptoms. Gastrointestinal: No gastrointestinal symptoms. Genitourinary: Dysuria. Endocrine: No endocrine symptoms. Hematologic: No hematologic symptoms. Musculoskeletal: No musculoskeletal symptoms. Neurological: No neurological symptoms. Psychological: No psychological symptoms. Skin: No skin symptoms. Mental Status Includes: Mental Status from this encounter No Mental Status Recorded Functional Status Includes: Functional Status from this encounter No Functional Status Recorded Physical Exam Includes: Physical Exam from this encounter Allergies Includes: Active Allergies Substance Type Reaction Onset Date Resolved Date Statu s Sulfa Antibiotics Allergy 05/31/2013 A ctive Last Documented On 4 3:06PM ; [facility] Encounters Encounter Provider Location Date Check-In Time Check-Out Time Diagnosis PROBLEM VISIT NORA MACHADO M.D. [facility] 04/27/20 14 10:10AM 10:57AM Urinary Tract Infection Clinical Notes Includes: Clinical Notes from this encounter No Clinical Notes Recorded
--- OUTSIDE RECORDS SUMMARY | 2024-11-29 11:59 | XMS_ITS ---
Author Organization Unknown Address [address] [place], [place] [id number] Phone Care Team Providers Care Sheet Metal Technician Name Role Phone NELLY Grayson Attending Unavailable LUIGI Hendrix Primary Unavailable Immunization Immunization Date Status Additional Notes Code Code System pneumococcal polysaccharide PPV23 09/02/2018 Completed 33 CVX Pneumococcal conjugate PCV 13 08/03/2017 Completed 133 CVX Influenza, split virus, trivalent, PF 08/10/2024 Completed 140 CVX Influenza, split virus, quadrivalent, preservative 08/03/2017 Completed 158 C VX Influenza, split virus, quadrivalent, preservative 08/19/2018 Completed 158 C VX Influenza, split virus, quadrivalent, preservative 08/16/2019 Completed 158 C VX Influenza, split virus, quadrivalent, preservative 08/14/2020 Completed 158 C VX Influenza, split virus, quadrivalent, preservative 08/15/2021 Completed 158 C VX Influenza, split virus, quadrivalent, preservative 07/29/2022 Completed 158 C VX Influenza, split virus, quadrivalent, preservative 07/28/2023 Completed 158 C VX COVID-19, mRNA, LNP-S, PF, 1 00 mcg/0.5mL dose or 50 mcg/0.25mL dose 01/03/2021 Completed 207 CVX COVID-19, mRNA, LNP-S, PF, 1 00 mcg/0.5mL dose or 50 mcg/0.25mL dose 01/31/2021 Completed 207 CVX Social History Type Status Start Date End Date Code Code Syst em Smoking History Never smoker (Never Smoked) [id number] SNOMED CT Sex Female Hospital Discharge Instructions Should you have any questions prior to discharge, please contact a member of your healthcare team. If you have left the hospital and have any questions, please contact your primary care physician. Reason For Referral No Data Found Allergies and Adverse Reactions Allergy Substance Reaction Severity Start Date Concern Status Co de Code System BACTRIM DS Moderate Active 924290 RxNorm Plan of Treatment CT Abdomen/Pelvis WWO Contrast (35885) 10/23/2022 Digital Daljit Screen Bilateral (98256) MRI Low Ext Any Joint WO Contrast(24750) 07/25/2024 Encounters Encounter Diagnosis Start Date Code Code Sys tem Unilateral primary osteoarthritis, left knee 4 SNOMED-CT Personal Care Team Section Performer Name Performer Role Active Date Inactive Da te
--- OUTSIDE RECORDS SUMMARY | 2024-11-29 11:59 | XMS_ITS | Clinical Summary ---
Author Organization [facility] Address [address] [place] [address] Phone Care Team Providers Care Handle Machine Operator Name Role Phone EMERSON CortesMARIAELENA Shelby Unavailable [phone] Reason for Visit and Chief Complaint ANNUAL PHYSICAL EXAM Problems Includes: Problems addressed during this encounter and other active Problems All Visits Onset Date Resolved Date Provider Condition S tatus Urinary Tract Infection 04/29/2014 NORA MACHADO M.D. Active Last Documented On 04/29/2014 2:26PM ; [facility] Note: Unchanged CHRONIC PANCREATITIS 05/31/2013 JUDY TRIPLETT PA-C Active Last Documented On 3 3:22PM ; [facility] Diverticulitis of Colon 05/31/2013 LANDY VILLEDA PA-C Active Last Documented On 4 2:24PM ; [facility] ESOPHAGEAL REFLUX 05/31/2013 JUDY TRIPLETT PA -C Active Last Documented On 3 3:22PM ; [facility] HYPERLIPIDEMIA NEC/NOS 05/31/2013 JUDY ALEGRE IN PA-C Active Last Documented On 3 3:22PM ; [facility] HYPERTENSION NOS 05/31/2013 JUDY TRIPLETT PA- C Active Last Documented On 3 3:22PM ; [facility] IRRITABLE BOWEL SYNDROME 05/31/2013 JUDY CHURCHILLIN PA-C Active Last Documented On 3 3:22PM ; [facility] Plan of Treatment No Plan of Treatment Recorded Assessments Includes: Assessments from this encounter No Assessments Recorded Medical Equipment - Implanted Devices Includes: Current Devices No Medical Equipment Recorded Medications Includes: Medications discussed during this encounter and other current Medications Discontinued / Stopped on this date NORA MACHADO M.D. on 02/19/2014 Amoxicillin-Pot Clavulanate 875-125 MG OR TABS Provider: NORA MACHADO M.D. Diagnosis: ACUTE SINUSITIS NOS Last Documented On 04/30/2014 2:28PM By LORRAINE CEJA MD ; [facility] Promethazine-Codeine 6.25-10 MG/5ML OR SYRP Provider: NORA MACHADO M.D. Diagnosis: ACUTE SINUSITIS NOS Last Documented On 04/30/2014 2:28PM By LORRAINE CEJA MD ; [facility] predniSONE 20 MG OR TABS Provider: HARLAN MACHADO M.D. Diagnosis: ACUTE SINUSITIS NOS Last Documented On 04/30/2014 2:28PM By LORRAINE CEJA MD ; [facility] Lipitor 20 MG OR TABS Provider: Diagnosis: Last Documented On 04/30/2014 2:28PM By LORRAINE CEJA MD ; [facility] Benicar 5 MG OR TABS Provider: LORRAINE CEJA MD Diagnosis: Last Documented On 04/30/2014 2:28PM By LORRAINE CEJA MD ; [facility] New / Renewed during this visit LORRAINE CEJA MD on 04/30/2014 Atorvastatin Calcium 20 MG OR TABS Provider: LORRAINE CEJA MD 90 day supply: 90 tablet, 1 refills Diagnosis: HYPERLIPIDEMIA NEC/NOS Pharmacy: [address], [address] - Last Documented On 04/30/2014 2:30PM By LORRAINE CEJA MD ; [facility] Current Medications (continue as prescribed) Lipitor 20 MG OR TABS 07/23/2014 Provider: Diagnosis: Last Documented On 07/23/2014 2:20PM By RISHI AGUDELO ; [facility] Amitriptyline HCl 25 MG OR TABS 04/30/2014 Provider: LORRAINE CEJA MD Diagnosis: Tapering doses: one tab ever y other day for 7 days, then twice weekly for 7 days Last Documented On 07/23/2014 2:13PM By RISHI AGUDELO ; [facility] Pyridium 200 MG OR TABS 04/27/2014 Provider: PRICILA MACHADO M.D. Diagnosis: URIN TRACT INFEC TION NOS Last Documented On 04/27/2014 10:34AM By NORA MACHADO MD ; [facility] NexIUM 40 MG OR CPDR 10/10/2013 Provider: LORRAINE CEJA MD Diagnosis: Last Documented On 07/23/2014 2:13PM By RISHI AGUDELO ; [facility] Arthrotec 50-0.2 MG OR TBEC 05/30/2013 Provider: LORRAINE CEJA MD Diagnosis: Last Documented On 07/23/2014 2:13PM By RISHI AGUDELO ; [facility] Medications Administered Includes: Administered Medications from this encounter No Administered Medications Recorded Results Includes: Results discussed during this encounter No Results Recorded For Specified Dates History of Present Illness Includes: History of Present Illness from this encounter No History of Present Illness Recorded Social History No Social History Recorded - Smoking Status Unknown Medical History Includes: Medical History addressed during this encounter No Medical History Recorded Family History Includes: Family History addressed during this encounter No Family History Recorded Review of Systems Includes: Review of Systems from this encounter No Review of Systems Recorded Mental Status Includes: Mental Status from this encounter No Mental Status Recorded Functional Status Includes: Functional Status from this encounter No Functional Status Recorded Physical Exam Includes: Physical Exam from this encounter No Physical Exam Recorded Allergies Includes: Active Allergies Substance Type Reaction Onset Date Resolved Date Statu s Sulfa Antibiotics Allergy 05/31/2013 A ctive Last Documented On 4 3:06PM ; [facility] Encounters Encounter Provider Location Date Check-In Time Check-Out Time Diagnosis ANNUAL PHYSICAL EXAM LORRAINE CEJA MD [facility] 04/30/20 14 1:20PM 2:11PM Clinical Notes Includes: Clinical Notes from this encounter No Clinical Notes Recorded
--- OUTSIDE RECORDS SUMMARY | 2024-11-29 12:00 | XMS_ITS ---
Author Organization Unknown Address [address] [place], [place] [id number] Phone Care Team Providers Care Astronomy Professor Name Role Phone NELLY Grayson Attending Unavailable [...] em Smoking History Never smoker (Never Smoked) [id number] SNOMED CT Sex Female Hospital Discharge Instructions [...] de Code System BACTRIM DS Moderate Active 016994 RxNorm Plan of Treatment CT Abdomen/Pelvis WWO Contrast (26814) 10/23/2022 Digital Daljit Screen Bilateral (72297) MRI Low Ext Any Joint WO Contrast(52845) 07/25/2024 Encounters Encounter Diagnosis Start Date Code Code Sys tem Tear of medial meniscus of knee 10/04/2024 [id number] SNOMED-CT Personal Care Team Section Performer Name Performer Role Active Date Inactive Da te
--- OUTSIDE RECORDS SUMMARY | 2024-11-29 12:00 | XMS_ITS ---
Author Organization Unknown Address [address] [place], [place] [phone] Phone Care Team Providers Care Forming Yardage Control Operator Name Role Phone NELLY Grayson Attending Unavailable [...] em Smoking History Never smoker (Never Smoked) [id number] SNOMED CT Sex Female Hospital Discharge Instructions [...] de Code System BACTRIM DS Moderate Active 483798 RxNorm Plan of Treatment CT Abdomen/Pelvis WWO Contrast (35934) 10/23/2022 Digital Daljit Screen Bilateral (31360) MRI Low Ext Any Joint WO Contrast(08128) 07/25/2024 Encounters Encounter Diagnosis Start Date Code Code Sys tem Other tear of medial meniscu s, current injury, left knee, initial encounter 11/13/2024 SNOMED-CT Personal Care Team Section Performer Name Performer Role Active Date Inactive Da te
--- OUTSIDE RECORDS SUMMARY | 2024-11-29 12:00 | XMS_ITS ---
Care Plan - [facility] Created on: November 29, 2024 BIANCA CELESTIN : 1945 Sex: Female Author Organization [facility] Address [address] [place] [phone] Phone Care Team Providers Care Section Beamer Name Role Phone MARIAELENA NORMAN D.O. Unavailable [phone]
--- OUTSIDE RECORDS SUMMARY | 2024-11-29 12:00 | XMS_ITS ---
Author Organization Unknown Address [address] [place], [place] [phone] Phone Care Team Providers Care Commercial Production Editor Name Role Phone SHAMAR JARAMILLO Attending Unavailable LUIGI Hendrix Primary Unavailable Immunization [...] em Smoking History Never smoker (Never Smoked) [id number] SNOMED CT Sex Female Hospital Discharge Instructions [...] de Code System BACTRIM DS Moderate Active 011446 RxNorm Plan of Treatment CT Abdomen/Pelvis WWO Contrast (60108) 10/23/2022 Digital Daljit Screen Bilateral (99159) MRI Low Ext Any Joint WO Contrast(17735) 07/25/2024 Encounters Encounter Diagnosis Start Date Code Code Sys tem 04/26/2024 [id number] SNOMED-CT Personal Care Team Section Performer Name Performer Role Active Date Inactive Da te
--- OUTSIDE RECORDS SUMMARY | 2024-11-29 12:01 | XMS_ITS ---
Author Organization Unknown Address [address] [place], [place] [phone] Phone Care Team Providers Care Fast Food Cashier Name Role Phone NELLY Grayson Attending Unavailable [...] em Smoking History Never smoker (Never Smoked) 126942602 SNOMED CT Sex Female Hospital Discharge Instructions [...] de Code System BACTRIM DS Moderate Active 989841 RxNorm Plan of Treatment CT Abdomen/Pelvis WWO Contrast (99487) 10/23/2022 Digital Daljit Screen Bilateral (50510) MRI Low Ext Any Joint WO Contrast(37831) 07/25/2024 Encounters Encounter Diagnosis Start Date Code Code Sys tem Stress fracture, right femur , subsequent encounter for fracture with routine healing 08/01/2024 SNOMED-CT Personal Care Team Section Performer Name Performer Role Active Date Inactive Da te
--- OUTSIDE RECORDS SUMMARY | 2024-11-29 12:01 | XMS_ITS ---
Author Organization Unknown Address [address] [place], [place] [phone] Phone Care Team Providers Care Rental Sales Associate Name Role Phone SHAMAR JARAMILLO Attending Unavailable [...] em Smoking History Never smoker (Never Smoked) [id number] SNOMED CT Sex Female Hospital Discharge Instructions [...] de Code System BACTRIM DS Moderate Active 677709 RxNorm Plan of Treatment CT Abdomen/Pelvis WWO Contrast (74015) 10/23/2022 Digital Daljit Screen Bilateral (00269) MRI Low Ext Any Joint WO Contrast(49508) 07/25/2024 Encounters Encounter Diagnosis Start Date Code Code Sys tem Pain in left knee 06/02/2024 SNOMED-CT Personal Care Team Section Performer Name Performer Role Active Date Inactive Da te
--- OUTSIDE RECORDS SUMMARY | 2024-11-29 12:01 | XMS_ITS | Encounter Summary ---
Author Organization [facility] Address [address] [place] [address] Care Team Providers Care Carburetor Rebuilder Name Role Phone Lester Britt MD Primary Care Provider Encounter Details Date Type Department Care Team (Late st Contact Info) Description 11/28/2024 External Device Data [place] ABSTRACTION Provider, Abstract NO ADDRESS ON FILE Social History Tobacco Use Types Packs/Day Years Used Date Smoking Tobacco: Never Smokeless Tobacco: Never Alcohol Use Standard Drinks/Week Comments No 0 (1 standard drink = 0.6 oz pur e alcohol) Comments No Sex and Gender Information Value Date Recorded Sex Assigned at Not on file Legal Sex Female 6:10 AM BRIDGE DESIGN ENGINEER Gender Identity Not on file Sexual Orientation Not on file Occupation Industry Job Start Date Job End Date Not on file Not on file Not on file Not on file documented as of this encounter Plan of Treatment Not on file documented as of this encounter Visit Diagnoses Not on filedocumented in this encounter Care Teams Carburetor Rebuilder Relationship Specialty Start Date End Date Lester Britt MD [address] [place] [address] PCP - General Family Practice 04/17/19 documented as of this encounter
--- OUTSIDE RECORDS SUMMARY | 2024-11-29 12:01 | XMS_ITS ---
Author Organization Unknown Address [address] [place], [place] [phone] Phone Care Team Providers Care Project Management Professional Name Role Phone SHAMAR JARAMILLO Attending Unavailable [...] em Smoking History Never smoker (Never Smoked) [id number] SNOMED CT Sex Female Hospital Discharge Instructions [...] de Code System BACTRIM DS Moderate Active 875170 RxNorm Plan of Treatment CT Abdomen/Pelvis WWO Contrast (34090) 10/23/2022 Digital Daljit Screen Bilateral (33482) MRI Low Ext Any Joint WO Contrast(10797) 07/25/2024 Encounters Encounter Diagnosis Start Date Code Code Sys tem 05/03/2024 [id number] SNOMED-CT Personal Care Team Section Performer Name Performer Role Active Date Inactive Da te
--- OUTSIDE RECORDS SUMMARY | 2024-11-29 12:02 | XMS_ITS ---
Author Organization Unknown Address [address] [place], [place] [phone] Phone Care Team Providers Care Crisis Therapist Name Role Phone SHAMAR JARAMILLO Attending Unavailable [...] 50 mcg/0.25mL dose 01/31/2021 Completed 207 CVX Results KNEE 3V LEFT - Completed: 09:31 LOINC: EXAM DESCRIPTION: KNEE 3V LEFT REASON FOR STUDY: PAIN SWELLING ANTERIOR AND POSTERIORLY RADIATES UP THIGH AND DOWN INTO CALF STIFFNESS Duration: 2 WEEKS TECHNIQUE: 3 radiographic view(s) of the left knee . COMPARISON: None available FINDINGS: The alignment is normal. There is no fracture. Mild patellofemoral compartment left knee osteoarthritis. No aggressive bone lesions. Mild osteopenia. Trace left knee effusion. IMPRESSION: No acute osseous abnormality. Mild patellofemoral compartment left knee osteoarthritis. THIS IS AN ELECTRONICALLY VERIFIED FINAL REPORT 04/13/2024 2:50 AM - Electronically signed by Lizabeth Goode M.D. AT: AT Report ID: [id number] Reading Location: [place] [address] Social History Type Status Start Date End Date Code Code Syst em Smoking History Never smoker (Never Smoked) [id number] SNOMED CT Sex Female Hospital Discharge Instructions [...] de Code System BACTRIM DS Moderate Active 181271 RxNorm Plan of Treatment CT Abdomen/Pelvis WWO Contrast (99275) 10/23/2022 Digital Daljit Screen Bilateral (10837) MRI Low Ext Any Joint WO Contrast(66199) 07/25/2024 Encounters Encounter Diagnosis Start Date Code Code Sys tem Unilateral primary osteoarthritis, left knee 4 SNOMED-CT Personal Care Team Section Performer Name Performer Role Active Date Inactive Da te Imaging Narrative Notes
--- OUTSIDE RECORDS SUMMARY | 2024-11-29 12:02 | XMS_ITS ---
Author Organization [facility] Address [address] [place] [address] Phone Care Team Providers Care Agronomy Location Manager Name Role Phone EMERSON D.Aiden, MARIAELENA Shelby Unavailable [phone] Problems Includes: Active, inactive, and resolved Problems All Visits Onset Date Resolved Date Provider Condition S tatus Urinary Tract Infection 04/29/2014 NORA MACHADO M.D. Active Last Documented On 04/29/2014 2:26PM ; [facility] Note: Unchanged Acute Bronchitis 02/19/2014 Unknown NORA MALCOLM M.D. Resolved Last Documented On 04/29/2014 2:26PM ; [facility] Note: Unchanged Sinusitis Acute 02/19/2014 Unknown NORA MURPHY M.D. Resolved Last Documented On 04/29/2014 2:26PM ; [facility] Note: Unchanged CHRONIC PANCREATITIS 05/31/2013 JUDY CLARK-C Active Last Documented On 3 3:22PM ; [facility] Diverticulitis of Colon 05/31/2013 LANDY CLARK-C Active Last Documented On 4 2:24PM ; [facility] ESOPHAGEAL REFLUX 05/31/2013 JUDY CLARK -C Active Last Documented On 3 3:22PM ; [facility] HYPERLIPIDEMIA NEC/NOS 05/31/2013 JUDY TEAGUE PA-C Active Last Documented On 3 3:22PM ; [facility] HYPERTENSION NOS 05/31/2013 JUDY TRIPLETT PA- C Active Last Documented On 3 3:22PM ; [facility] IRRITABLE BOWEL SYNDROME 05/31/2013 JUDY CLARK-Guera Active Last Documented On 3 3:22PM ; [facility] Plan of Treatment Findings Encounter Date Ordered patient to call if rachel guerrier develops PROBLEM VISIT with LANDY CLARK-C 07/27/2014 Last Documented On 4 4:18PM ; [facility] Ordered return to the clinic if condition worsens or new symptoms arise PROBLEM VISIT with LANDY CLARK-C 07/27/2014 Last Documented On 4 4:18PM ; [facility] Ordered follow-up visit as n eeded with an office visit. SAME DAY SICK VISIT with NORA MACHADO M.D. 02/19/2014 Last Documented On 4 7:46PM ; [facility] Instructions to patient Go to the emergency room if condition worsens Last Documented On 4 4:16PM ; [facility] Assessments Includes: Assessments for all patient encounters Findings Encounter Date Diverticulitis of colon PROBLEM VISIT with LANDY CLARK-C 07/27/2014 Last Documented On 4 4:18PM ; [facility] Urinary tract infection PROBLEM VISIT with YAKOV MACHADO M.D. 04/27/2014 Last Documented On 4 2:26PM ; [facility] Acute bronchitis SAME DAY SICK VISIT with JONNY MACHADO M.D. 02/19/2014 Last Documented On 4 7:46PM ; [facility] Acute sinusitis SAME DAY SICK VISIT with NORA MACHADO M.D. 02/19/2014 Last Documented On 4 7:46PM ; [facility] Dysuria PROBLEM VISIT with JUDY CLARK-C 09/08/2013 Last Documented On 3 3:10PM ; [facility] Urinary tract infection PROBLEM VISIT with JUDY CLARK-C 06/29/2013 Last Documented On 3 5:01PM ; [facility] Urinary tract infection PROBLEM VISIT with JUDY CLARK-C 05/31/2013 Last Documented On 3 2:33PM ; [facility] Instructions Includes: Instructions for all patient encounters Instructions to patient Go to the emergency room if condition worsens Last Documented On 4 4:16PM ; [facility] Medical Equipment - Implanted Devices Includes: Current and historical Devices No Medical Equipment Recorded Medications Includes: Current and historical Medications Current Medications (continue as prescribed) Lipitor 20 MG OR TABS 07/23/2014 Provider: Diagnosis: Last Documented On 07/23/2014 2:20PM By RISHI AGUDELO ; [facility] Amitriptyline HCl 25 MG OR TABS 04/30/2014 Provider: LORRAINE CEJA MD Diagnosis: Tapering doses: one tab ever y other day for 7 days, then twice weekly for 7 days Last Documented On 07/23/2014 2:13PM By RISHI AGUDELO ; [facility] Pyridium 200 MG OR TABS 04/27/2014 Provider: PRICILA MACHADO M.D. Diagnosis: URIN TRACT INFEC TION NOS Last Documented On 04/27/2014 10:34AM By NORA MACHADO MD ; [facility] NexIUM 40 MG OR CPDR 10/10/2013 Provider: LORRAINE CEJA MD Diagnosis: Last Documented On 07/23/2014 2:13PM By RISHI AGUDELO ; [facility] Arthrotec 50-0.2 MG OR TBEC 05/30/2013 Provider: LORRAINE CEJA MD Diagnosis: Last Documented On 07/23/2014 2:13PM By RISHI AGUDELO ; [facility] Past Medications on file metroNIDAZOLE 250 MG OR TABS 07/27/2014 - 08/06/2014 Provider: LANDY BRYAN PA-C Diagnosis: Dvrtcli Colon W/ O Hmrhg Do not drink alcohol with this medication Last Documented On 4 2:27PM By LANDY BRYAN PA-C ; [facility] Ciprofloxacin HCl 250 MG OR TABS 07/27/2014 - 08/06/2014 Provider: LANDY BRYAN PA-C Diagnosis: Dvrtcli Colon W/ O Hmrhg Last Documented On 4 2:27PM By LANDY BRYAN PA-C ; [facility] Atorvastatin Calcium 20 MG OR TABS 04/30/2014 - 10/27/2014 Provider: LORRAINE CEJA MD Diagnosis: HYPERLIPIDEMIA N EC/NOS Last Documented On 04/30/2014 2:30PM By LORRAINE CEJA MD ; [facility] Ciprofloxacin HCl 500 MG OR TABS 04/27/2014 - 07/23/2014 Provider: NORA MACHADO M.D. Diagnosis: URIN TRACT INFEC TION NOS Last Documented On 07/23/2014 2:12PM By RISHI AGUDELO ; [facility] Amoxicillin-Pot Clavulanate 875-125 MG OR TABS 02/19/2014 - 04/30/2014 Provider: NORA MACHADO M.D. Diagnosis: ACUTE SINUSITIS NOS Last Documented On 04/30/2014 2:28PM By LORRAINE CEJA MD ; [facility] Promethazine-Codeine 6.25-10 MG/5ML OR SYRP 02/19/2014 - 04/30/2014 Provider: NORA MACHADO M.D. Diagnosis: ACUTE SINUSITIS NOS 1 1/2 ts at hs for 7 days then prn Last Documented On 04/30/2014 2:28PM By LORRAINE CEJA MD ; [facility] predniSONE 20 MG OR TABS 02/19/2014 - 04/30/2014 Provider: NORA Tapia Diagnosis: ACUTE SINUSITIS NOS 4 tabs qd (start today) Last Documented On 04/30/2014 2:28PM By LORRAINE CEJA MD ; [facility] Amitriptyline HCl 25 MG OR TABS 02/19/2014 - 4 Provider: Diagnosis: Last Documented On 04/30/2014 2:28PM By LORRAINE CEJA MD ; [facility] Amitriptyline HCl 25 MG OR TABS 10/10/2013 - 4 Provider: LORRAINE CEJA MD Diagnosis: Last Documented On 10/10/2013 2:13PM By RISHI AGUDELO ; [facility] Ciprofloxacin HCl 250 MG OR TABS 09/08/2013 - 10/10/2013 Provider: JUDY TRIPLETT PA-C Diagnosis: DYSURIA Last Documented On 10/10/2013 2:08PM By RISHI AGUDELO ; [facility] Phenazopyridine HCl 200 MG O R TABS 09/08/2013 - 10/10/2013 Provider: JUDY TRIPLETT PA-C Diagnosis: DYSURIA Last Documented On 10/10/2013 2:08PM By RISHI AGUDELO ; [facility] Lipitor 20 MG OR TABS 09/08/2013 - 04/30/2014 Provider : Diagnosis: Last Documented On 04/30/2014 2:28PM By LORRAINE CEJA MD ; [facility] Ciprofloxacin HCl 250 MG OR TABS 06/29/2013 - 10/10/2013 Provider: JUDY TRIPLETT PA-C Diagnosis: URIN TRACT INFEC TION NOS Last Documented On 10/10/2013 2:08PM By RISHI AGUDELO ; [facility] Pyridium 200 MG OR TABS 06/29/2013 - 10/10/2013 Provider: JUDY TRIPLETT PA-C Diagnosis: URIN TRACT INFEC TION NOS Last Documented On 10/10/2013 2:08PM By RISHI AGUDELO ; [facility] Vitamin D3 1.25 MG (40978 UT) OR CAPS 06/20/2013 - 08/15/2013 Provider: LORRAINE CEJA MD Diagnosis: URIN TRACT INFEC TION NOS take one capsule every 2 weeks for 8 weeks Last Documented On 06/20/2013 1:22PM By BOUBACAR BERTRAND LPN ; [facility] Pyridium 200 MG OR TABS 05/31/2013 - 06/29/2013 Provider: JUDY TRIPLETT PA-C Diagnosis: URIN TRACT INFEC TION NOS Last Documented On 06/29/2013 3:35PM By JUDY TRIPLETT ; [facility] Nitrofurantoin Macrocrystal 100 MG OR CAPS 05/31/2013 - 10/10/2013 Provider: JUDY TRIPLETT PA-C Diagnosis: URIN TRACT INFEC TION NOS Last Documented On 10/10/2013 2:08PM By RISHI AGUDELO ; [facility] NexIUM 40 MG OR CPDR 05/30/2013 - 05/30/2013 Provider: LORRAINE CEJA MD Diagnosis: Last Documented On 10/10/2013 2:13PM By RISHI AGUDELO ; [facility] Benicar 5 MG OR TABS 05/30/2013 - 04/30/2014 Provider: LORRANIE CEJA MD Diagnosis: Last Documented On 04/30/2014 2:28PM By LORRAINE CEJA MD ; [facility] Amitriptyline HCl 25 MG OR TABS 05/30/2013 - 3 Provider: LORRAINE CEJA MD Diagnosis: Last Documented On 10/10/2013 2:12PM By RISHI AGUDELO ; [facility] Medications Administered Includes: Administered Medications in patient's chart No Administered Medications Recorded Results Includes: Results from 11/29/2023 through 11/29/2024 No Results Recorded For Specified Dates History of Present Illness History of Present Illness not supported for this document type No History of Present Illness Recorded Social History Description Last Updated Smoking status : Never smoker 07/27/2014 Last Documented On 4 4:18PM ; [facility] A recent decrease in exercise activity 0 02/19/2014 Last Documented On 4 7:46PM ; [facility] Recent change in sleep 02/19/2014 Last Documented On 4 7:46PM ; [facility] No travel 02/19/2014 Last Documented On 4 7:46PM ; [facility] Medical History Includes: Medical History in patient's chart Description Last Updated No exposure to a contagious disease 01/31 Last Documented On 4 7:46PM ; [facility] Family History Includes: Family History in patient's chart No Family History Recorded Review of Systems Review of Systems not supported for this document type No Review of Systems Recorded Mental Status Description Oriented to time, place, and person Functional Status No Functional Status Recorded Physical Exam Physical Exam not supported for this document type No Physical Exam Recorded Allergies Includes: Active, inactive, and resolved Allergies Substance Type Reaction Onset Date Resolved Date Statu s Sulfa Antibiotics Allergy 05/31/2013 A ctive Last Documented On 4 3:06PM ; [facility] Clinical Notes Includes: Signed Clinical Notes starting from 11/20/2022 No Clinical Notes Recorded
--- OUTSIDE RECORDS SUMMARY | 2024-11-29 12:02 | XMS_ITS ---
Author Organization Unknown Address [address] [place], [place] [id number] Phone Care Team Providers Care Career Technical Education Teacher Name Role Phone NELLY Grayson Attending Unavailable [...] mcg/0.25mL dose 01/31/2021 Completed 207 CVX Results MRI LE ANY JOINT WO CONTRAST - Completed: 07/25/2024 13:45 LOINC: EXAM DESCRIPTION: MRI LE ANY JOINT WO CONTRAST REASON FOR STUDY: Left knee MRI wo contrast. +/-4 months ago, the pt began having acute left knee pain and stiffness the day after intently picking strawberries; for c.1 week, the pt couldn't straighten her knee and had to use a cane/walker to aid in ambulation; pain has improved over time, but can still be intense when laying on her side. No discrete traumatic incident. Duration: 4 months, with nominal improvement. TECHNIQUE: Multiplanar, multisequence MRI of the left knee was performed without contrast. COMPARISON: None FINDINGS: Joint and Bursae: There is a small joint effusion. No Lewis's cyst. No intra-articular plica. Bones: There is a subchondral insufficiency fracture involving the central weight-bearing portion of the medial femoral condyle with associated profound flame shaped marrow edema seen extending towards the intercondylar notch. There is otherwise normal marrow signal and osseous alignment. Cartilage: Patellofemoral: Moderate to advanced chondromalacia. Medial compartment: Moderate to advanced chondromalacia. Lateral Compartment: Mild chondromalacia. Ligaments: The ACL, PCL, MCL and lateral collateral ligament complex are intact. Extensor Mechanism: The quadriceps and patellar tendons are intact. Tendons/Soft tissues: The popliteus tendon is intact. The musculature is intact without evidence of tear. The popliteal neurovascular bundle is normal. Medial Meniscus: The anterior horn is intact. Mild extrusion of the body. Radial tearing of the posterior horn root junction. Lateral Meniscus: The anterior horn, body and posterior horn is intact. IMPRESSION: ? ? Medial femoral condyle subchondral insufficiency fracture with associated profound marrow edema. ? ? Medial meniscus posterior horn root junction radial tear with mild extrusion of the body. ? ? Intact appearing cruciate and collateral ligaments as well as lateral meniscus. ? ? 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 ? ? Small joint effusion. THIS IS AN ELECTRONICALLY VERIFIED FINAL REPORT 07/25/2024 1:57 PM - Electronically signed by Juni FARIAS: DINORA Report ID: [id number] Reading Location: [id number] Social History Type Status Start Date End Date Code Code Syst em Smoking History Never smoker (Never Smoked) 401572439 SNOMED CT Sex Female Hospital Discharge Instructions [...] de Code System BACTRIM DS Moderate Active 366736 RxNorm Plan of Treatment CT Abdomen/Pelvis WWO Contrast (78678) 10/23/2022 Digital Daljit Screen Bilateral (57918) MRI Low Ext Any Joint WO Contrast(36212) 07/25/2024 Encounters Encounter Diagnosis Start Date Code Code Sys tem Nondisplaced fracture of med ial condyle of left femur, initial encounter for closed fracture 07/25/2024 SN OMED-CT Personal Care Team Section Performer Name Performer Role Active Date Inactive Da te Imaging Narrative Notes
--- OUTSIDE RECORDS SUMMARY | 2024-11-29 12:03 | XMS_ITS ---
Author Organization Unknown Address [address] [place], [place] [phone] Phone Care Team Providers Care Bonded Structures Repairer Name Role Phone SHAMAR JARAMILLO Attending Unavailable [...] em Smoking History Never smoker (Never Smoked) 752483578 SNOMED CT Sex Female Hospital Discharge Instructions [...] de Code System BACTRIM DS Moderate Active 095310 RxNorm Plan of Treatment CT Abdomen/Pelvis WWO Contrast (01984) 10/23/2022 Digital Daljit Screen Bilateral (77278) MRI Low Ext Any Joint WO Contrast(16602) 07/25/2024 Encounters Encounter Diagnosis Start Date Code Code Sys tem Uterovaginal prolapse 09/16/2023 24726501 SNOMED -CT Personal Care Team Section Performer Name Performer Role Active Date Inactive Da te
--- OUTSIDE RECORDS SUMMARY | 2024-11-29 12:04 | XMS_ITS ---
Author Organization Unknown Address [address] [place], [place] [phone] Phone Care Team Providers Care Combatant Swimmer Name Role Phone CHAVA DA SILVA Attending Unavailable LUIGI Hendrix Primary Unavailable Immunization [...] mcg/0.25mL dose 01/31/2021 Completed 207 CVX Results URINALYSIS w/Microscopy/C&S if indicated - Collect Date/Time: 06/08/2024 17:22 [facility] ID: [id number] [place], [place], [id number] LOINC: 27171-9 Test Value Unit Reference Range Code Code System Flag UR SOURCE VOIDED 83155-8 LOINC COLOR LT YELLOW YELLOW 5778-6 LOINC CLARITY CLEAR CLEAR 94842-4 LOINC SPEC GRAVITY 1.010 1.000-1.030 5811-5 LOINC PH 7.0 5.0 - 6.5 5803-2 LOINC LEUK EST 1+ NEGATIVE 5799-2 LOINC A NITRATE NEGATIVE NEGATIVE PROTEIN NEGATIVE NEGATIVE 5804-0 LOINC GLUCOSE NEGATIVE NEGATIVE 93372-1 LOINC KETONES NEGATIVE NEGATIVE 65632-1 LOINC UROBILINOGEN 0.2 NEGATIVE 5818-0 LOINC BILIRUBIN NEGATIVE NEGATIVE 69215-6 LOINC BLOOD NEGATIVE NEGATIVE 86833-8 LOINC WBC 5-10 0 - 2 71989-0 LOINC A RBC 0-2 0 - 2 64495-7 LOINC EPITHELIAL FEW RARE-FEW 41845-7 LOINC BACTERIA FEW NONE SEEN 28280-6 LOINC MUCUS NONE SEEN NONE SEEN 8247-9 LOINC YEAST NOT PRESENT NOT PRESENT 31425-9 LOINC CASTS NONE SEEN 25531-7 LOINC CRYSTALS NONE SEEN 04746-4 LOINC CULTURE? NO 8251-1 LOINC DIAGNOSIS N/A COMPREHENSIVE METABOLIC PANE L - Collect Date/Time: 06/08/2024 16:05 [facility] ID: [id number] [place], [place], [id number] LOINC: 47543-7 Test Value Unit Reference Range Code Code System Flag FASTING UNKNOWN BUN 16 mg/dL L=7 H=20 3094-0 LOINC CREATININE 0.80 mg/dL L=0.52 H=1.04 2160-0 LOINC GLUCOSE 101 mg/dL L=74 H=106 2345-7 LOINC SODIUM 137 mmol/L L=132 H=144 2951-2 LOINC POTASSIUM 3.7 mmol/L L=3.5 H=5.1 2823-3 LOINC CHLORIDE 102 mmol/L L=98 H=107 2075-0 LOINC CO2 27.0 mmol/L L=22.0 H=30.0 2028-9 LOINC ANION GAP 12 L=10 H=20 13890-6 LOINC OSMOLALITY 285 mOs/kG L=280 H=296 26683-4 LOINC BUN/CREAT 20.0 3097-3 LOINC CALCIUM 9.7 mg/dL L=8.3 H=10.5 55304-5 LOINC AST 46 U/L L=15 H=46 1920-8 LOINC ALT 32 U/L L=9 H=72 1742-6 LOINC ALKALINE PHOS 112 U/L L=38 H=126 6768-6 LOINC TOTAL BILI 0.9 mg/dL L=0.2 H=1.3 1975-2 LOINC ALBUMIN 4.6 G/dL L=3.5 H=5.0 175-7 LOINC TOTAL PROTEIN 8.4 g/L L=6.3 H=8.2 2885-2 LOINC H A/G RATIO 1.2 11230-1 LOINC AGE 78 79822-7 LOINC eGFR NON-AFR 74 ml/min eGFR AFR AMER 90 ml/min LIPASE - Collect Date/Time: 06/08/2024 16:05 [facility] ID: [id number] [address] [place], [place], [id number] LOINC: 3040-3 Test Value Unit Reference Range Code Code System Flag LIPASE 230 U/L L=23 H=300 3040-3 LOINC PROTIME - Collect Date/Time: 06/08/2024 16:05 [facility] ID: [id number] [address] [place], [place], [id number] LOINC: 90966-6 Test Value Unit Reference Range Code Code System Flag PT 10.3 Sec L=9.7 H=11.7 37339-6 LOINC INR 1.0 Sec L=0.9 H=1.1 94858-7 LOINC CBC W/ DIFF - Collect Date/T elliot: 06/08/2024 16:05 [facility] ID: [id number] [address] [place], [place], [id number] LOINC: 26732-7 Test Value Unit Reference Range Code Code System Flag WBC 8.1 10^3uL L=4.8 H=10.8 RBC 4.42 10^6uL L=4.20 H=5.40 HEMOGLOBIN 13.5 g/dL L=12.0 H=16.0 718-7 LOINC HEMATOCRIT 41.3 VOL% L=37.0 H=47.0 4544-3 LOINC MCV 93.4 fL L=81.0 H=99.0 MCH 30.5 pg L=27.0 H=32.0 MCHC 32.7 g/dL L=32.0 H=36.0 PLATELETS 256 10^3uL L=100 H=400 41282-9 LOINC RDW 11.9 % L=11.7 H=15.5 %GRAN 58.3 % L=40.0 H=70.0 11492-6 LOINC %LYMPH 28.8 % L=20.0 H=45.0 736-9 LOINC %MONO 9.7 % L=2.0 H=10.0 63245-2 LOINC %EOS 2.4 % L=0.0 H=6.0 713-8 LOINC %BASO 0.6 % L=0.0 H=3.0 706-2 LOINC #NEUT 4.7 10^3uL L=1.9 H=7.6 14399-6 LOINC #LYMPH 2.3 10^3uL L=0.9 H=4.9 55254-8 LOINC #MONO 0.8 10^3uL L=0.1 H=0.9 21836-5 LOINC #EOS 0.2 10^3uL L=0.0 H=0.6 712-0 LOINC #BASO 0.05 10^3uL L=0.00 H=0.10 33594-6 LOINC #IM GRANS 0.0 10^3uL L=0.0 H=7.0 20605-3 LOINC %IM GRANS 0.2 % L=0.0 H=5.0 16428-3 LOINC %NRB 0.0 L=0.0 H=0.2 33017-9 LOINC #NRB 0.000 L=0.000 H=0.012 64060-2 LOINC MANUAL DIFF NOT INDICATED RBC MORPH NOT INDICATED RESPIRATORY 4 PLEX COVID FLU RSV PCR - Collect Date/Time: 06/08/2024 16:05 [facility] ID: [id number] [address] [place] [address], [id number] LOINC: 45556-5 Test Value Unit Reference Range Code Code System Flag SARS CoV2 PCR NEGATIVE FLU A PCR NEGATIVE FLU B PCR NEGATIVE RSV PCR NEGATIVE SEND TO [facility]? YES TROPONIN LEVEL - Collect Morales e/Time: 06/08/2024 16:05 [facility] ID: [id number] [address] [place] [address], [id number] LOINC: 54528-8 Test Value Unit Reference Range Code Code System Flag TROPONIN < 0.012 ng/mL L=0.000 H=0.033 06814-6 LOINC PTT - Collect Date/Time: 06/2024 16:05 [facility] ID: [id number] [address] [place] [address], [id number] LOINC: 49819-0 Test Value Unit Reference Range Code Code System Flag PTT 24.9 Sec L=23.0 H=31.2 CT ABD/PEL W/ CONTRAST - Com pleted: 06/08/2024 16:43 LOINC: 03290-0 EXAM DESCRIPTION: CT ABD/PEL W/ CONTRAST REASON FOR STUDY: Mid abdominal pain with nausea and generalized weakness for 1 week, worsening in the last 3 days with chronic diarrhea. History of cholecystectomy and bowel resection. TECHNIQUE: CT scan of the abdomen and pelvis performed with intravenous and without oral contrast using helical scanning technique with dynamic intravenous contrast injection. Reconstructed coronal and sagittal MPR images reviewed. All images stored on PACS. Automated exposure control was used as a dose optimization technique for this examination. CONTRAST TYPE/DOSE: 100 cc Isovue 370 injected via left antecubital COMPARISON: 10/23/2022 FINDINGS: LOWER CHEST: No significant pulmonary abnormalities. No effusion. Small hiatal hernia. LIVER: Normal size. No identified cystic or solid masses. GALLBLADDER: Surgically absent. BILE DUCTS: No intrahepatic or extrahepatic ductal dilatation. SPLEEN: Normal size. No focal lesions. PANCREAS: No identified cystic or solid masses. No significant calcifications. No adjacent inflammation or peripancreatic fluid collections. Pancreatic duct not dilated. ADRENALS: Normal. KIDNEYS/URINARY TRACT: No identified significant cystic or solid masses. No visualized stones. No hydronephrosis or hydroureter. Symmetric enhancement. Urinary bladder is unremarkable. A pessary is in place within the pelvis. GI: No dilated bowel loops. No obvious wall thickening. Normal appendix. Scattered diverticular disease without diverticulitis. Postoperative changes involving the distal sigmoid colon. PERITONEUM: No ascites or free air. RETROPERITONEUM: No mass or adenopathy. REPRODUCTIVE: No significant abnormality. VASCULATURE: No abdominal aortic aneurysm. MUSCULOSKELETAL: Multilevel degenerative changes are present without fracture. No concerning lesions are present. Thoracolumbar scoliosis. OTHER: No other abnormality. IMPRESSION: ? ? Diverticulosis. No evidence of diverticulitis. Postoperative changes involving the distal sigmoid colon. ? ? Surgical absence of the gallbladder. ? ? Small hiatal hernia. THIS IS AN ELECTRONICALLY VERIFIED FINAL REPORT 06/08/2024 4:58 PM - Electronically signed by Rhys Marmolejo M.D. KT: KT Report ID: [id number] Reading Location: [place] [address] Social History Type Status Start Date End Date Code Code Syst em Smoking History Never smoker (Never Smoked) [id number] SNOMED CT Sex Female Hospital Discharge Instructions [...] de Code System BACTRIM DS Moderate Active 023654 RxNorm Plan of Treatment CT Abdomen/Pelvis WWO Contrast (38341) 10/23/2022 Digital Daljit Screen Bilateral (95638) MRI Low Ext Any Joint WO Contrast(83476) 07/25/2024 Encounters Encounter Diagnosis Start Date Code Code Sys tem Infectious gastroenteritis and colitis, unspecified SNOMED-CT Personal Care Team Section Performer Name Performer Role Active Date Inactive Da te Imaging Narrative Notes
--- OUTSIDE RECORDS SUMMARY | 2024-11-29 12:05 | XMS_ITS ---
Author Organization Unknown Address [address], [place] [phone] Phone Care Team Providers Care Finance Administrator Name Role Phone NELLY Grayson Attending Unavailable [...] dose 01/31/2021 Completed 207 CVX Results KNEE 4V LEFT - Completed: 09:38 LOINC: \TM00\12PI\DRAo\BM09\ \MRLo\ [address] [address] ---------NAME--------- NUMBER SEX AGE ADMIT DISC. XRAY# F/C TYPE FAWAD BIANCA OZUNA [id number] F 79 11/21/24 11/21/24 9909 MB7 O/P DATE OF : 1945 M/R# [id number] #: [phone] \MRHx\ LOCATION: TRANSCRIBED: 11/21/24 10:19 KNEE 4V LEFT [id number] COMPLETED:11/21/24 9:38 [id number] {REASON-KNEE: FX FOLLOW UP PHYSICIAN: NELLY BR R A D I O L O G Y R E P O R T EXAM: KNEE 4V LEFT CLINICAL INDICATION: FX FOLLOW UP TECHNIQUE: KNEE 4V LEFT Comparison: KNEE 4V LEFT on DOS: 09/19/24 FINDINGS/IMPRESSION: There is no evidence of acute fracture or dislocation. Moderate left knee osteoarthritis The alignment is anatomical. There is no radiopaque foreign body. SSING PRESS OPERATOR \ITLo\ \UNDo\ \UNDx\ \ITLx\ Reviewed and Electronically Signed by: Sarwat Bernabe MD Signed Date: 11/21/24 10:19 11/21/24.1022. .to LUIGI ORELLANA via fax Social History Type Status Start Date End Date Code Code Syst em Smoking History Never smoker (Never Smoked) [id number] SNOMED CT Sex Female Hospital Discharge Instructions [...] de Code System BACTRIM DS Moderate Active 062237 RxNorm Plan of Treatment CT Abdomen/Pelvis WWO Contrast (63613) 10/23/2022 Digital Daljit Screen Bilateral (26822) MRI Low Ext Any Joint WO Contrast(08966) 07/25/2024 Encounters Encounter Diagnosis Start Date Code Code Sys tem Unilateral primary osteoarthritis, left knee 5 SNOMED-CT Personal Care Team Section Performer Name Performer Role Active Date Inactive Da te Imaging Narrative Notes [facility] 11/21/2024 10:[address] [address] ---------NAME--------- NUMBER SEX AGE ADMIT DISC. XRAY# F/C TYPE FAWAD OZUNA [id number] F 79 11/21/24 11/21/24 9909 MB7 O/P DATE OF : 1945 M/R# [id number] PH#: [phone] LOCATION: TRANSCRIBED: 11/21/24 10:19 KNEE 4V LEFT [id number] COMPLETED:11/21/24 9:38 62874 {REASON-KNEE: FX FOLLOW UP PHYSICIAN: NELLY BR RADIOLOGY REPORT EXAM: KNEE 4V LEFT CLINICAL INDICATION: FX FOLLOW UP TECHNIQUE: KNEE 4V LEFT Comparison: KNEE 4V LEFT on DOS: 09/19/24 FINDINGS/IMPRESSION: There is no evidence of acute fracture or dislocation. Moderate left knee osteoarthritis The alignment is anatomical. There is no radiopaque foreign body. SSING PRESS OPERATOR Reviewed and Electronically Signed by: Sarwat Bernabe MD Signed Date: 11/21/24 10:19 11/21/24.[facility]. .to LUIGI ORELLANA via fax
--- OUTSIDE RECORDS SUMMARY | 2024-11-29 12:05 | XMS_ITS | Clinical Summary ---
Author Organization [facility] Address [address] [place] [phone] Phone Care Team Providers Care Nursing Unit Manager Name Role Phone MOLLYANTHONY Rocio.AidenMARIAELENA Shelby Unavailable [phone] Reason for Visit and Chief Complaint The Chief Complaint is: PT IS HERE TODAY FOR ABDOMINAL PAIN AND CRAMPING SYMPTOMS STARTED LAST NIGHT , NO VOMITTING, HAS HAD A LITTLE DIARRHEA Problems Includes: Problems addressed during this encounter and other active Problems Current Visit Onset Date Resolved Date Provider Conditio n Status Diverticulitis of Colon 05/31/2013 ABRAHAN CLARK-C Active Last Documented On 4 2:24PM ; [facility] Past Visits Onset Date Resolved Date Provider Condition Status Urinary Tract Infection 04/29/2014 NORA MACHADO M.D. Active Last Documented On 04/29/2014 2:26PM ; [facility] Note: Unchanged CHRONIC PANCREATITIS 05/31/2013 JUDY CLARK-C Active Last Documented On 3 3:22PM ; [facility] ESOPHAGEAL REFLUX 05/31/2013 JUDY TRIPLETT PA -C Active Last Documented On 3 3:22PM ; [facility] HYPERLIPIDEMIA NEC/NOS 05/31/2013 JUDY TEAGUE PA-C Active Last Documented On 3 3:22PM ; [facility] HYPERTENSION NOS 05/31/2013 JUDY TRIPLETT PA- C Active Last Documented On 3 3:22PM ; [facility] IRRITABLE BOWEL SYNDROME 05/31/2013 JUDY SAWYER PA-C Active Last Documented On 3 3:22PM ; [facility] Plan of Treatment - Return to the clinic if condition worsens or new symptoms arise - Last Documented On 07/27/2014 4:18PM ; [facility] - Patient to call if problem develops - Last Documented On 07/27/2014 4:18PM ; [facility] Instructions to patient Go to the emergency room if condition worsens Last Documented On 4 4:16PM ; [facility] Assessments Includes: Assessments from this encounter Findings - Diverticulitis of colon - Last Documented On 07/27/2014 4:18PM ; [facility] Instructions Includes: Instructions from this encounter Instructions to patient Go to the emergency room if condition worsens Last Documented On 4 4:16PM ; [facility] Medical Equipment - Implanted Devices Includes: Current Devices No Medical Equipment Recorded Medications Includes: Medications discussed during this encounter and other current Medications New / Renewed during this visit LANDY BRYAN PA-C on 07/27/2014 metroNIDAZOLE 250 MG OR TABS Provider: LANDY BRYAN PA-C 10 day supply: 40 tablet, 0 refills Diagnosis: Dvrtcli Colon W/O Hmrhg Do not drink alcohol with th is medication Pharmacy: [facility] [id number] [facility], [address] - Last Documented On 4 2:27PM By LANDY BRYAN PA-C ; [facility] Ciprofloxacin HCl 250 MG OR TABS Provider: LANDY BRYAN PA-C 10 day supply: 20 tablet, 0 refills Diagnosis: Dvrtcli Colon W/O Hmrhg Pharmacy: [facility] [id number] [address] [facility], [address] - Last Documented On 4 2:27PM By LANDY BRYAN PA-C ; [facility] Current Medications (continue as prescribed) Lipitor 20 MG OR TABS 07/23/2014 Provider: Diagnosis: Last Documented On 07/23/2014 2:20PM By RISHI AGUDELO ; [facility] Amitriptyline HCl 25 MG OR TABS 04/30/2014 Provider: LORRAINE CEJA MD Diagnosis: Tapering doses: one tab ever y other day for 7 days, then twice weekly for 7 days Last Documented On 07/23/2014 2:13PM By RISHI AGUDELO ; [facility] Pyridium 200 MG OR TABS 04/27/2014 Provider: PRICILA MACHADO M.D. Diagnosis: URIN TRACT INFEC TION NOS Last Documented On 04/27/2014 10:34AM By NORA MACHADO MD ; [facility] NexIUM 40 MG OR CPDR 10/10/2013 Provider: LORRAINE CEJA MD Diagnosis: Last Documented On 07/23/2014 2:13PM By RISHI AGUDELO ; [facility] Arthrotec 50-0.2 MG OR TBEC 05/30/2013 Provider: LORRAINE CEJA MD Diagnosis: Last Documented On 07/23/2014 2:13PM By RISHI AGUDELO ; [facility] Past Medications on file Atorvastatin Calcium 20 MG OR TABS 04/30/2014 - 10/27/2014 Provider: LORRAINE CEJA MD Diagnosis: HYPERLIPIDEMIA N EC/NOS Last Documented On 04/30/2014 2:30PM By LORRAINE CEJA MD ; [facility] Amitriptyline HCl 25 MG OR TABS 10/10/2013 - 4 Provider: LORRAINE CEJA MD Diagnosis: Last Documented On 10/10/2013 2:13PM By RISHI AGUDELO ; [facility] Vitamin D3 1.25 MG (52737 UT) OR CAPS 06/20/2013 - 08/15/2013 Provider: LORRAINE CEJA MD Diagnosis: URIN TRACT INFEC TION NOS take one capsule every 2 weeks for 8 weeks Last Documented On 06/20/2013 1:22PM By BOUBACAR BERTRAND LPN ; [facility] Medications Administered Includes: Administered Medications from this encounter No Administered Medications Recorded Vital Signs Includes: Vital Signs from this encounter Vital Name 07/27/2014 02:09P Blood Pressure Sitting L 136/78 BP Cuff Size Regular Pulse Rate-Sitting (bpm) 76 Respiration Rate (breaths/min) 18 Temp-Oral (F) 97.7 Height (in) 63 Weight (lb) 171 Body Mass Index (kg/m2) 30.3 Body Surface Area (m2) 1.8 Last Documented: On 07/27/2014 2:14PM ; [facility] Results Includes: Results discussed during this encounter No Results Recorded For Specified Dates History of Present Illness Includes: History of Present Illness from this encounter OUMOU CELESTIN is a 69 year old female. - Chills - No fever - No chest pain or discomfort - No palpitations - No pounding heartbeat - The heart rate was not slow - The heart rate was not fast - No dyspnea - Not expressed as feeling short of breath - Abdominal pain associated with diarrhea - mild - Which feels crampy/colicky - Which started suddenly - Diarrhea in small volume - No heartburn - No nausea - No vomiting - No abdominal swelling - No bowel urgency - No constipation - No hematuria - No cloudy urine - No foul-smelling urine - No increase in urinary frequency - No urinary urgency - No dysuria - No burning sensation during urination - No pain in the flank Hx of diverticulitis requiring hospital stay. Thinks she has caught it early. Social History Description Last Updated Smoking status : Never smoker 07/27/2014 Last Documented On 4 4:18PM ; [facility] Procedures and Surgical History Includes: Procedures from this encounter Procedures Code Diagnosis Performing Provider Service L ocation Service Date medication instruction Last Documented On 4 4:16PM ; [facility] continue current medication Last Documented On 4 4:16PM ; [facility] plan of care reviewed and agreed to Last Documented On 4 4:16PM ; [facility] Clinical summary provided to patient Last Documented On 4 2:11PM ; [facility] Medical History Includes: Medical History addressed during this encounter No Medical History Recorded Family History Includes: Family History addressed during this encounter No Family History Recorded Review of Systems Includes: Review of Systems from this encounter Systemic: No fever, no chills, and no night sweats. Cardiovascular: No chest pain or discomfort, no palpitations, and the heart rate was not fast. Pulmonary: No dyspnea, no cough, and no wheezing. Gastrointestinal: No heartburn. No nausea and no vomiting. Abdominal pain. No melena. Diarrhea. Genitourinary: No hematuria and no increase in urinary frequency. No dysuria. Mental Status Includes: Mental Status from this encounter Description Oriented to time, place, and person Functional Status Includes: Functional Status from this encounter No Functional Status Recorded Physical Exam Includes: Physical Exam from this encounter Allergies Includes: Active Allergies Substance Type Reaction Onset Date Resolved Date Statu s Sulfa Antibiotics Allergy 05/31/2013 A ctive Last Documented On 4 3:06PM ; [facility] Encounters Encounter Provider Location Date Check-In Time Check-Out Time Diagnosis PROBLEM VISIT LANDY BRYAN PA-C [facility] 014 1:59PM 2:30PM Diverticulitis of Colon Clinical Notes Includes: Clinical Notes from this encounter No Clinical Notes Recorded
--- OUTSIDE RECORDS SUMMARY | 2024-11-29 12:05 | XMS_ITS | Clinical Summary ---
Author Organization [facility] Address [address] [place] [address]. [place] [address] [place] [address] Care Team Providers Care Physician In Private Practice Name Role Phone Lester Britt MD Primary Care Provider Paco Casey MD Unavailable [phone] Allergies Active Allergy Reactions Criticality Noted [...] of uncertain etiology 10/05/2018 SVT (supraventricular tachycardia) ([facility]) 10/05/2018 Mixed hyperlipidemia 10/05/2018 HTN (hypertension) Family [...] Comments Blood Pressure 156/85 10/05/2018 5:35 PM [employer] Pulse 64 10/05/2018 5:35 PM [employer] Temperature - - Respiratory Rate - - Oxygen Saturation - - Inhaled Oxygen Concentration - - Weight 70.9 kg (156 lb 6.4 oz) 10/05/2018 5:35 P M [employer] Height 160 cm (5' 3 ) 10/05/2018 5:35 PM [employer] Body Mass Index 27.71 10/05/2018 5:35 PM [employer] ADVISOR Plan of Treatment Health Maintenance Due Date [...] complete this topic Insurance [employer] Care Teams Physician In Private Practice Relationship Specialty Start Date End Date Lester Britt MD [address] [place] [phone] PCP - General FAMILY PRACTICE 09/15/18 Paco Casey MD [address] [place] [id number] [place]pper CARDIOVASCULAR DISEASE 10/05/19
--- OUTSIDE RECORDS SUMMARY | 2024-11-29 12:05 | XMS_ITS ---
Author Organization Unknown Address [address] [place], [place] [phone] Phone Care Team Providers Care Caregivers Homecare Name Role Phone NELLY Grayson Attending Unavailable [...] CVX Results KNEE 4V LEFT - Completed: 09:49 LOINC: EXAM DESCRIPTION: ? ? KNEE 4V LEFT REASON FOR STUDY: pain/stiffness/limited ROM hx of stress fracture/meniscus tear Duration: 6 months FINDINGS: Four views submitted with comparison 04/12/2024. No acute fractures are identified. Alignment is normal. There is moderate medial predominant left knee osteoarthritis. Subchondral insufficiency fracture of the medial femoral condyle is noted. There is a small knee effusion. IMPRESSION: ? ? Moderate medial predominant left knee osteoarthritis with a subchondral insufficiency fracture of the medial femoral condyle. ? ? Small left knee effusion. THIS IS AN ELECTRONICALLY VERIFIED FINAL REPORT 09/21/2024 3:31 PM - Electronically signed by Faraz Davila M.D. MF: [id number] Report ID: [id number] Reading Location: [id number] Social History Type Status Start Date End Date Code Code Syst em Smoking History Never smoker (Never Smoked) [id number] SNOMED CT Sex Female Hospital Discharge Instructions [...] de Code System BACTRIM DS Moderate Active 296928 RxNorm Plan of Treatment CT Abdomen/Pelvis WWO Contrast (17243) 10/23/2022 Digital Daljit Screen Bilateral (08868) MRI Low Ext Any Joint WO Contrast(35987) 07/25/2024 Encounters Encounter Diagnosis Start Date Code Code Sys tem Unilateral primary osteoarthritis, left knee 4 SNOMED-CT Personal Care Team Section Performer Name Performer Role Active Date Inactive Da te Imaging Narrative Notes
--- OUTSIDE RECORDS SUMMARY | 2024-11-29 12:05 | XMS_ITS | Encounter Summary ---
Author Organization [facility] Address [address] [place] [address]. [place] [address] [place] [address] Care Team Providers Care Optics Test Technician Name Role Phone Lester Britt MD Primary Care Provider Jean Vogel MD Unavailable Unavailable Paco Casey MD Unavailable [phone] Encounter Details Date Type Department Care Team (Late st Contact Info) Description 04/08/2019 Abstract SFL CONVERSION [address] [place] [address] , Generic Conversion, Social History Tobacco Use [...] on filedocumented in this encounter Care Teams Optics Test Technician Relationship Specialty Start Date End Date Lester Britt MD [address] [place] [phone] PCP - General FAMILY PRACTICE 09/15/18 Jean Vogel MD [address] [place] [phone] INTERVENTIONAL CARDIOLOGY 09/15/18 10/04/19 Paco Casey MD [address] [place] [id number] [place] [employer] Sizer CARDIOVASCULAR DISEASE 10/05/19 documented as of this encounter
== END 2024-11-29 10:45 | disposition home or self-care (01) ==
LOC: ANHSURGERY 10:51
PROVIDERS: PCP Family Medicine; Visit Provider Urology
DX: Z01.818 Encounter for other preprocedural examination (principal); I10 Essential (primary) hypertension; E78.5 Hyperlipidemia, unspecified; I49.8 Other specified cardiac arrhythmias
CPT/HCPCS: 93005

== ENCOUNTER 2025-04-27 00:29 | Day surgery (SDC) | payer MEDICARE, SELFPAY ==
[2024-11-27 14:51] VITALS: BMI 26.5
--- NOTE | 2024-11-27 15:06 | PC.NURSE ---
Addendum entered by Kary Adam RN 04/17/25 15:39: Pt was called and rescheduled , she has had no change in her status or medications all reviewed and reconciled once again. Report to the Outpatient Waiting Room, entrance under the green pavilion located off [email or web address], at time __07:45am on date _04/27/25 . Planned Procedure Time: 09:45am .? Time changes happen often and if your time is changed the preop area will call you the afternoon before. - You and your visitor will be asked to self-screen and do not enter if you have any COVID symptoms. Please call surgeon if you need to reschedule. - A mask is optional within the hospital at this time. Patients may have clear liquids (water, carbonated beverages, clear teas, apple juice) until 3 hours prior to surgery with a maximum of 20 ounces. - No food from midnight until time of surgery and no smoking. This includes no chewing gum, candy or mints.(0645am) Take only the following medications with a SIP of water on the morning of surgery: ___None DO NOT STOP ANY OF YOUR OTHER PRESCRIPTION MEDICATIONS PRIOR TO SURGERY EXCEPT THE FOLLOWING Medications to discontinue per physician Hold all NSAIDS, Vitamins and Meloxicam for [address] Bentley Date to take last dose___04/18/25 Rest of instructions as below for PREP & RIDE HOME JRRN Addendum entered by Kary Adam RN 02/01/25 10:13: Pt called back w new surgery date and time- pt feeling better since Cancellation few last month. All of below reexplained and questions answered. No change in meds or allergies, pt completed antibiotics prior. Report to the Outpatient Waiting Room, entrance under the green pavilion located off [email or web address], at time __06:15am on date _02/16/25 . Planned Procedure Time: 08:15 am . - You and your visitor will be asked to self-screen and do not enter if you have any COVID symptoms. Please call surgeon if you need to reschedule. - A mask is optional within the hospital at this time. Patients may have clear liquids (water, carbonated beverages, clear teas, apple juice) until 3 hours prior to surgery with a maximum of 20 ounces. - No food from midnight until time of surgery and no smoking. This includes no chewing gum, candy or mints. Take only the following medications with a SIP of water on the morning of surgery: ___None DO NOT STOP ANY OF YOUR OTHER PRESCRIPTION MEDICATIONS PRIOR TO SURGERY EXCEPT THE FOLLOWING Medications to discontinue per physician HOLD Multiple Vitamins, supplements, Probiotics and Herbs 3 days prior per Anesthesia Date to take last dose___02/12/25 Original Note: Report to the Outpatient Waiting Room, entrance under the green pavilion located off [facility], at time __06:00am on date _12/08/24 . Planned Procedure Time: 0730am .? Time changes happen often and if your time is changed the preop area will call you the afternoon before. - You and your visitor will be asked to self-screen and do not enter if you have any COVID symptoms. Please call surgeon if you need to reschedule. - A mask is optional within the hospital at this time. Patients may have clear liquids (water, carbonated beverages, clear teas, apple juice) until 3 hours prior to surgery with a maximum of 20 ounces. - No food from midnight until time of surgery and no smoking. This includes no chewing gum, candy or mints. Take only the following medications with a SIP of water on the morning of surgery: ___None DO NOT STOP ANY OF YOUR OTHER PRESCRIPTION MEDICATIONS PRIOR TO SURGERY EXCEPT THE FOLLOWING Medications to discontinue per physician HOLD Multiple Vitamins, supplements, Probiotics and Herbs 3 days prior per Anesthesia Date to take last dose___12/04/24 Please no make-up, nail malawian, hairspray, perfume, deodorant, or body powder the day of surgery.? No jewelry (including any body piercings) or valuables the day of surgery, leave them at home.? Please take a shower or bath the night before, or the morning of, surgery with an antibacterial soap.? Wear comfortable, loose fitting clothing.? - Jewelry must be removed prior to entering the operating room.? Rings and piercings that are not removed may be cut off. - The hospital will not accept responsibility for valuables.? - Please leave all valuables, including medications, at home the day of surgery. If you are going home after surgery, a licensed stunt driver must drive you home.? - NO public transportation without another adult if you receive anesthesia. - We recommend that an adult stay with you for 24 hours following discharge. - We also recommend that you do not drive, make important decision, drink alcoholic beverages, or take any drugs that were not prescribed by your health care provider for at least 24 hours after your discharge time. Follow any additional instructions given to you from your surgeon. Telephone instructions given to _ Patient ____and asked if any additional questions and then verbalized understanding. Patient advised to call surgeon office or pre surgery nurse liaison [phone] if any additional questions.
[2025-02-01 10:17] VITALS: BMI 26.5
--- NOTE | 2025-02-10 12:35 | P.HP_ITS ---
H&P: HPI History of Present Illness Date/Time: 02/10/25 12:35 Chief Complaint: prolapse and stress incontinence Narrative: she has pelvic organ prolapse. Stress incontinence documented on urodynamics. She does not tolerate a pessary. She would like surgical correction Review of Systems Review of Systems: All systems reviewed & are unremarkable except as noted in HPI and below REPLACED BY [facility] Social History Social History Smoking status: Never smoker Alcohol intake: never Substance use: never Living arrangements: with family Additional living arrangements comments: Spiritual care concerns: No Meds Home Medications and Allergies Home Medications ?Medication ?Instructions ?Recorded ?Confirmed ?Type amlodipine 2.5 mg tablet (Norvasc) 2.5 mg PO DAILY 11/27/24 02/01/25 History atorvastatin 20 mg tablet 20 mg PO HS 11/27/24 11/27/24 History meloxicam 15 mg tablet 15 mg PO DAILY pain 11/27/24 11/27/24 History Allergies Allergy/AdvReac Type Severity Reaction Status Date / Time Sulfa (Sulfonamide Allergy Intermediate rash Verified 02/01/25 10:13 Antibiotics) DAVID Inhibitors AdvReac Intermediate cough Verified 02/01/25 10:13 Exam Narrative: cystocele at +3 reasonable apical support minimal urethral mobility Assessment and Plan Assessment and plan (1) Cystocele with prolapse: Code(s): N81.4 - Uterovaginal prolapse, unspecified Status: Acute (2) AINSLEY (stress urinary incontinence, female): Code(s): N39.3 - Stress incontinence (female) (male) Status: Acute Plan vaginal repair of pelvic organ prolapse, cystocele repair, concomitant urethral sling. Risks, benefits, alternatives are outlined in office chart
--- OUTSIDE RECORDS SUMMARY | 2025-02-16 00:33 | XMS_ITS | Continuity of Care Document ---
Author Organization [facility] Address [address] [place] [address] Phone Care Team Providers Care Exhibit Builder Name Role Phone Surinder Marcial MD, FACS [...] Visit Removal Of Eye Lesion Office/outpatient Visit, [facility] Certified EMR Advance Directives Directive Yes / [...] Diagnoses Date Provider Providers Copied on Encounter [facility], [address], [place], [place], [id number], tel:[phone] SEC Ye OTERO Professional No Information 3 Aggie Cadena. [facility] [employer], [address], [place], [place], [address], . tel:[phone] Referring Provider: Surinder Ryan, [facility] [employer] [facility] [address], [place], [address]. tel:[phone] [facility], [facility] [employer] - [address], [place], [place], [address], [place] tel:[phone] SEC [place] SHANNA Professional FOLLOW-UP SURGERY NOS 2 Galindo Mays. [address] [facility], [address], [place], [place], [address], [place]. tel:[phone] Referring Provider: Surinder Ryan, [address] [facility] [address], [place], [address]. tel:[phone] [facility], [facility] [employer] - [address], [place], [place], [address], [place] tel:[phone] SEC Ye SHANNA Professional No Information 2 Galindo Mays. [address] [facility], [address], [place], [place], [address], [place]. tel:[phone] [facility], [facility] [employer] - [address], [place], [place], [id number], [place] tel:[phone] SEC [facility] No Information Dec-0 7-201 2 [place] Surinder. [address] [place] [address] [employer] [facility], [address], [place], [place], [address], [place]. tel:[phone] Referring Provider: Crys Marmolejo OD, [address] [facility] [address] [facility], [place], [address]. tel:[phone] [facility], [address] [place] [address] [address], [place], [place], [id number], [place] tel:[phone] SEC [facility] Professional No Information Nov-1 3-201 2 [place] Surinder. [address] [place] [address] [employer] [facility], [address], [place], [place], [address], [place]. tel:[phone] [facility], [address] [place] [address] [address], [place], [place], [address], [place] tel:[phone] SEC [facility] Professional FOLLOW-UP SURGERY NOS Oct-0 9-201 2 [place] Surinder. [address] [place], [place] [address] [employer]) [facility], [address], [place], [place], [address], [place]. tel:[phone] Referring Provider: Crys Marmolejo OD, [address] [facility], [place], [address]. tel:[phone] [facility], [address] [place] [address] [address], [place], [place], [address], [place] tel:[phone] SEC [facility] No Information Oct-0 5-201 2 Aggie Surinder. [address] [place], [place] [address] [employer], [address], [place], [place], [address], [place]. tel:[phone] Referring Provider: Crys Marmolejo OD, [address] [facility] [address] [facility], [place], [address]. tel:[phone] Office/outpa tient Visit, [facility], [address] [place] [address] [address], [place], [place], [address], [place] tel:[phone] SEC Brian Hardin NODULAR CORNEA DEGEN Jul- 0-201 2 Aggie Cadena. [address] [employer], [address], [place], [place], [address], [place]. tel:[phone] Family History Family Member Type Diagnosis Age At Onset Mother Problem (finding) glaucoma Payers Payer name Insurance type Covered green party ID Authoriza tion(s) No Information Social History Type Description Quantity Date Captured Comments Alcohol Use Details Unknown Caffeine Use Details Unknown Tobacco Use Status No Information Smoking Status No Information Sex Female Chief Complaint And Reason For Visit No Information Reason For Referral Reason For Referral No [...]
--- OUTSIDE RECORDS SUMMARY | 2025-02-16 00:33 | XMS_ITS | Encounter Summary ---
Author Organization [facility] Address [address] [place] [address] Care Team Providers Care Regulatory Internship Name Role Phone Lester Britt MD Primary Care Provider Jean Vogel MD Unavailable Unavailable Paco Casey MD Unavailable [phone] Encounter Details Date Type Department Care Team (Late st Contact Info) Description 04/08/2019 Abstract SFL CONVERSION [address] [place] [address] , Generic Conversion, Social History Tobacco Use [...] on filedocumented in this encounter Care Teams Regulatory Internship Relationship Specialty Start Date End Date Lester Britt MD [address] [place] [phone] PCP - General FAMILY PRACTICE 09/15/18 Jean Vogel MD [address] [place] [phone] INTERVENTIONAL CARDIOLOGY 09/15/18 10/04/19 Paco Casey MD [address] [place] [phone] [employer] Sheller Operator CARDIOVASCULAR DISEASE 10/05/19 documented as of this encounter
--- OUTSIDE RECORDS SUMMARY | 2025-02-16 00:33 | XMS_ITS | Data Portability ---
Author Organization [facility], [address] [place] ([place]) Address [address] [place] [address] Care Team Providers Care Top Edge Beveler Name Role Phone ABEL MEYERS Primary Care [...] the left knee were independently reviewed from [facility] and show moderately severe left knee [...] after MRI to discuss treatment options. [email or web address] Not available 07/11/2024 16:17:08 08/01/2024 08/01/2024 History: [...] knee and MRI were independently reviewed from [facility] and show a left knee medial [...] I did recommend conservative treatment with the referral and information aide brace and minimal activity at this time. [...] it is much improved since wearing the referral and information aide brace. She has not done any physical [...] left knee were independently reviewed today from [facility], 4 views standing, compared to 3 [...] knee. She should continue to wear her referral and information aide brace. I recommended she start some physical [...] exercise program. She is still wearing her referral and information aide brace under her clothing. She takes meloxicam [...] the left knee were independently reviewed from [facility] today. Previous radiographs as well as [...] Details Appointments Establish ed Patient 10.EST 2024 09:40A M Dr. Marvel Islas Not available Not [...] contr ast No observ ation record ed. [address] (Radiology) [address] [place], [address], 09/17/2024 09:38:44 09/15/20 24 07/25/2024 MRI, lower extre mity joint (s), w/o contr ast No observ ation record ed. [place] [id number] [place], [address], 11/11/2024 21:01:04 Result Notes None recorded. Problems Name Problem SNOMED Code Status Onset Date Resolution Date Notes Provider Name and Address Organization Details Recorded Time Osteoarthri tis of left knee joint 6567736872220 09 Active 2023 Marvel Islas MD [address] [place] [address], [phone], [facility] 4 08:50:24 Closed fracture distal femur, medial condyle 521287675 Active 2023 Marvel Islas MD [address] [place] [address], [phone], [facility] 4 09:15:08 Tear of medial meniscus of knee 068586569 Active 2023 Marvel Islas MD [address] [place] [address], [phone], [facility] 4 09:39:09 Problem Notes None recorded. Procedures [...] Time 04/12/2024 XR, knee, 3 view completed [email or web address] Information not available 07/11/2024 10:20:10 04/12/2024 XR, knee, 3 view completed [email or web address] Information not available 08/10/2024 10:10:25 09/05/2024 MRI, knee, w/o contrast completed [address] (Radiology) [address] [place], [address], 09/17/2024 09:38:44 07/25/2024 MRI, lower extremity joint(s), w/o contrast completed [address] [address] [place], [address], 11/11/2024 21:01:04 Procedure Notes None recorded. Medical Equipment None Reported. Allergies Allergen ID Allergen Name Allergen Category Reaction Reaction Severity Criticality Documentation Date Start Date Code Code System Note Provider Name and Address Organization Details Recorded Time 001595 Substance with sulfonami de structure and antibacte rial mechanism of action (substanc e) medicatio n Not available Not available Not available 11/29/20232019 50746 8003 SNOMED Not Available Not Available Not Available 144584 Product containin g angiotens in-conver ting enzyme inhibitor (product) medicatio n Not available Not available Not available 11/29/20232019 78940 009 SNOMED Not Available Not Available Not [...] t Available Vitals Date Recorded Body height Body mass index (BMI) Body weight Heart rate Oxygen saturation Oxygen saturation in Arterial blood by Pulse oximetry Systolic blood pressure Diastolic blood pressure Provider Name and Address Organization Details Last Updated DateTime 4 160.02 cm 27.1 kg/m2 12922.6 3 g 70 /min 97 % 97 % 171 mm[Hg] 81 mm[Hg] Nia Gilbert [facility] 4 10:09:32 Date Recorded Body height Body mass index (BMI) Body weight Heart rate Oxygen saturation Oxygen saturation in Arterial blood by Pulse oximetry Systolic blood pressure Diastolic blood pressure Provider Name and Address Organization Details Last Updated DateTime 4 160.02 cm 26.9 kg/m2 31918.0 4 g 97 /min 97 % 97 % 156 mm[Hg] 83 mm[Hg] Maria Antonia Reyes [facility] 4 09:03:36 Date Recorded Body height Body mass index (BMI) Body weight Heart rate Oxygen saturation Oxygen saturation in Arterial blood by Pulse oximetry Systolic blood pressure Diastolic blood pressure Provider Name and Address Organization Details Last Updated DateTime 4 160.02 cm 26.9 kg/m2 02776.0 4 g 66 /min 98 % 98 % 168 mm[Hg] 79 mm[Hg] Nia Hdezdred [facility] 4 10:52:48 Date Recorded Body height Body mass index (BMI) Body weight Heart rate Oxygen saturation Oxygen saturation in Arterial blood by Pulse oximetry Systolic blood pressure Diastolic blood pressure Provider Name and Address Organization Details Last Updated DateTime 5 160.02 cm 26.7 kg/m2 40126.4 5 g 65 /min 99 % 99 % 156 mm[Hg] 92 mm[Hg] Gwendolyn Murillo [facility] 5 10:53:52 Social History Question Answer Notes LastModified by Organizat ion Details LastModified Time Tobacco Smoking Status Never Smoker Not Available Health Note 11/20/2024 14:15:45 Do You Have An Advance Directive? Yes [email or web address] Information not available 11/20/2024 What Is [...] Not available 14:15:44 Medical History Condition Response Attention-deficit Hyperactivity Disorder N High Blood Pressure Y Thyroid Problems N COPD N Depression N Anemia N Diabetes N Anxiety Disorder N Bleeding Disorder N Arthritis N Hyperlipidemia N Cancer N Stroke N Asthma N Seizures N Heart Disease N Fibromyalgia N Osteoporosis N Kidney Disease N Gynecological HistoryNo gynecological history recorded. Obstetrics History GPAL:G 0 P 0 0 0 0 Past Encounters Encounter ID Performer Location Encounter Start Date Encounter Closed Date Diagnosis/Indication Diagnosis SNOMED-CT Code Diagnosis ICD10 Code Diagnosis Note [id number] Marvel Islas MD [facility] ([place] [address] 07/11/2024 10:07:04 07/11/2024 10:22:45 Osteoarthritis of left knee joint 4517284010 51172 M17.12 Additional diagnosis detail: Primary osteoarthr itis of left knee [id number] Marvel Islas MD [facility] ([place] [address] 08/01/2024 08:58:18 08/01/2024 09:17:34 Osteoarthritis of left knee joint 6055623577 85047 M17.12 Additional diagnosis detail: Primary osteoarthr itis of left knee Closed fra cture distal femur, medial condyle 952868625 S72.435D Additional diagnosis detail: Closed nondisplac ed fracture of medial condyle of left femur with routine healing, subsequent encounter [id number] MD PHILIP Mendoza [facility] [place] [address] [place] [address] 09/19/2024 10:23:09 09/19/2024 11:10:27 Closed fracture distal femur, medial condyle 808168941 S72.435D Additional diagnosis detail: Closed nondisplac ed fracture of medial condyle of left femur with routine healing, subsequent encounter Osteoarthr itis of left knee joint 3272651837 25937 M17.12 Additional diagnosis detail: Primary osteoarthr itis of left knee Tear of me dial meniscus of knee 413635461 S83.242A [id number] MD PHILIP Mendoza [facility] ([place] [address] 11/21/2024 10:19:43 11/21/2024 11:21:13 Tear of medial meniscus of knee 883166315 S83.242A Closed fra cture distal femur, medial condyle 851207513 S72.435D Additional diagnosis detail: Closed nondisplac ed fracture of medial condyle of left femur with routine healing, subsequent encounter Osteoarthr itis of left knee joint 7366462994 41011 M17.12 Additional diagnosis detail: Primary osteoarthr itis of left knee Health Concerns Section Related Observation LastModified by Organization Detai ls LastModified Time None Recorded Concern Status LastModified by Organization Details LastModified Time None Recorded Advance Directives Directive Y: Payers Encounter Date Sequence Insurance Name Policy Number Policy Escalante Covered Member ID Escalante Member ID Guarantor Name 07/11/2024 1 [place] Bing L Jeovanny [id number] Bing L Jeovanny 08/01/2024 1 [employer] (MEDICARE REPLACEMENT PPO) [id number] Bing L Jeovanny [id number] Bing L Jeovanny 09/19/2024 1 [employer] (MEDICARE REPLACEMENT PPO) [id number] Bing L Jeovanny [id number] Bing L Jeovanny 11/21/2024 1 [employer] (MEDICARE REPLACEMENT PPO) [id number] Bing L Jeovanny [id number] Bing L Jeovanny Notes Date Note Type Note Provider Name and Address Organization Details Recorded Time 5 text/html Bing Barksdalemarcelino a 79 year oldfemalepresenting for care. Marvel Islas MD [address] [facility], [place], [address], [facility] 11/21/2024 17:49:05 OBGyn Episode No OBEpisode recorded.
--- OUTSIDE RECORDS SUMMARY | 2025-02-16 00:33 | XMS_ITS | Clinical Summary ---
Author Organization [facility] Address [address] [place] [address] Care Team Providers Care Veneer Jointer Returner Name Role Phone Lester Britt MD Primary Care Provider [phone] Paco Casey MD Unavailable [phone] Allergies Active Allergy Reactions Criticality Noted Date [...] of uncertain etiology 10/05/2018 SVT (supraventricular tachycardia) (HHS/HCC) 03/2018 Mixed hyperlipidemia 10/05/2018 HTN (hypertension) Family History [...] Comments Blood Pressure 156/85 10/05/2018 5:35 PM NITRILES LAB TECHNICIAN Pulse 64 10/05/2018 5:35 PM NITRILES LAB TECHNICIAN Temperature - - Respiratory Rate - - Oxygen Saturation - - Inhaled Oxygen Concentration - - Weight 70.9 kg (156 lb 6.4 oz) 10/05/2018 5:35 P M NITRILES LAB TECHNICIAN Height 160 cm (5' 3) 10/05/2018 5:35 PM NITRILES LAB TECHNICIAN Body Mass Index 27.71 10/05/2018 5:35 PM NITRILES LAB TECHNICIAN Plan of Treatment Health Maintenance Due Date Last Done Comments Hepatitis C 1965 DTaP, Tdap and Td Vaccines ( 1 - Tdap) 1966 Zoster Vaccines (1 of 2) 1997 Annual Medicare Wellness Visit 2012 Dexa Scan (General) 2012 RSV Immunization or 60+ Years (1 - 1-dose 75+ series) 2022 COVID-19 Vaccine (3 - 2023-2 5 season) 2024 01/31/2021, 01/03/2021 Pneumococcal Vaccine: 50+ Years Completed 09/02/2018, 08/10/2018, 08/03/2017 Meningococcal B Vaccine Aged Out No l onger eligible based on patient's age to complete this topic Meningococcal Vaccine Aged Out No fantasma gala eligible based on patient's age to complete this topic RSV Immunizations Under 20 Months Aged Out No longer eligible b ased on patient's age to complete this topic Insurance AETNA Care Teams Veneer Jointer Returner Relationship Specialty Start Date End Date Lester Britt MD [address] [place] [phone] PCP - General FAMILY PRACTICE 09/15/18 Paco Casey MD [address] [place] [phone] [place] [employer] CARDIOVASCULAR DISEASE 10/05/19
--- OUTSIDE RECORDS SUMMARY | 2025-02-16 00:33 | XMS_ITS | Clinical Summary ---
Author Organization [facility] Address [address] [place] [phone] Phone Care Team Providers Care German Instructor Name Role Phone Lester Britt MD Primary [...] Encounters Date Type Department Care Team Description 12/19/2024 External Device Data [facility] ABSTRACTION Provider, Abstract 11/28/2024 External Device Data [facility] ABSTRACTION Provider, [...] on file Legal Sex Female 6:10 AM PROGRESSIVE CARE MANAGER Gender Identity Not on file Sexual Orientation Not on file Occupation Industry Job Start Date Job End Date Not on file Not on file Not on file Not on file Last Filed Vital Signs Vital Sign Reading Time Taken Comments Blood Pressure 139/72 12/27/2023 2:16 PM PROGRESSIVE CARE MANAGER Pulse 73 09/08/2022 11:50 AM PROGRESSIVE CARE MANAGER Temperature 37 C (98.6 F) 01/06/2020 12:28 PM PROGRESSIVE CARE MANAGER Respiratory Rate 18 12/09/2022 10:56 AM PROGRESSIVE CARE MANAGER Oxygen Saturation 97% 09/08/2022 11:50 AM PROGRESSIVE CARE MANAGER RA Inhaled Oxygen Concentration - - Weight 71.2 kg (157 lb) 12/27/2023 2:16 PM PROGRESSIVE CARE MANAGER Height 160 cm (5' 3) 12/27/2023 2:16 PM PROGRESSIVE CARE MANAGER Body Mass Index 27.81 12/27/2023 2:16 PM PROGRESSIVE CARE MANAGER Plan of Treatment Health Maintenance Due Date Last Done Comments DTAP/TDAP/TD VACCINES (1 - Tdap) 1966 ZOSTER VACCINE (1 of 2) 1997 OSTEOPOROSIS SCREENING 2012 PNEUMOCOCCAL VACCINE 50+ YEA RS (2 of 2 - PCV) 08/10/2019 08/10/2018 RSV VACCINE (60+ or ) (1 - 1-dose 75+ series) 2022 INFLUENZA VACCINE (#1) 2024 08/17/2019 COLORECTAL SCREENING Discontinued 05/15/2019, 05/15/2019, 09/28/2012 Colorectal Cancer Screening Discontinued FIT-DNA Q 3 years Discontinued FIT/FOBT Q 1 year Discontinued Flex Sig/CT Colonography Q 5 years Discontinued Medical Devices Implanted Type Area Medicaid Service Coordinator Device Identifier Shelf Expiration Date Model / Serial / Lot Clip Murphyolok [facility] [id number] - Csc - [id number] Implanted:Qty: 1 on 12/29/2019 by Baltazar Nye MD at [facility] Clip N/A: Pelvis TELEFLEX- [employer]ECK [employer]URE SYS 03/12/2024 [id number] / / [id number] Description:3 clips used Procedures Procedure Name Priority Date/Time Associated Diagnosis Comments COLONOSCOPY REPORT 05/15/2019 10 :05 AM CDT from Last 3 Months or Most Recently Relevant to Health Maintenance Results * COLONOSCOPY REPORT (05/15/2019 10:05 AM CDT) Narrative Procedure Note Steven Dyer MD - 05/15/2019 10:[address] [facility] Endoscopy Patient Name: Bing Up [...] of Addenda: [address]; [place] [address] Steven Dyer MD GI PROCEDURE ORDERABLES Final Re sult from Last 3 Months or Most Recently Relevant to Health Maintenance Insurance AETNA [facility] Advance Directives For more information, please contact: [phone] * Full Code (Latest Code Status on [...] 8:15 AM 05/15/2019 12:38 PM Care Teams German Instructor Relationship Specialty Start Date End Date Lseter Britt MD [address] [place] [phone] PCP - General Family Practice 04/17/19
[2025-04-17 15:31] VITALS: BMI 26.5
--- NOTE | 2025-04-26 15:21 | WPDANESEPPF ---
Anes - Initial Pre Proc Eval Procedure: Operation Date: 04/27/25 09:45 Proposed Procedures p Cystocele Repair, - Viet Bentley MD s Urethral Sling - Viet Bentley MD Date/Time: 04/26/25 15:21 Surgeon: Viet Bentley MD Pre Op Diagnosis: cystocele, stress incont Patient Data Age: 79 Gender: F Height: 1.6 m Weight: 68 kg Allergies Allergy/AdvReac Type Severity Reaction Status Date / Time Sulfa (Sulfonamide Allergy Intermediate rash Verified 04/27/25 09:23 Antibiotics) DAVID Inhibitors AdvReac Intermediate cough Verified 04/27/25 09:23 Home Medications ?Medication ?Instructions ?Recorded ?Confirmed ?Type amlodipine 2.5 mg tablet (Norvasc) 2.5 mg PO DAILY 11/27/24 02/01/25 History atorvastatin 20 mg tablet 20 mg PO HS 11/27/24 11/27/24 History meloxicam 15 mg tablet 15 mg PO DAILY pain 11/27/24 04/27/25 History docusate sodium 100 mg capsule 100 mg PO BID #40 caps 04/27/25 Rx (Colace) hydrocodone 5 mg-acetaminophen 325 1 tablet PO Q6H PRN pain #20 tabs 04/27/25 Rx mg tablet Patient hx anesthesia problems: none Family hx anesthesia problems: none Results Review: All pre-operative results and documents have been reviewed as part of the pre-operative evaluation. [facility] Past Medical History Medical History (Updated 04/27/25 @ 04:49 by Viet Bentley MD) Cystocele with prolapse Pancreatitis PONV (postoperative nausea and vomiting) Hyperlipidemia Hypertension Social History Social History Smoking status: Never smoker Alcohol intake: never Substance use: never Living arrangements: with family Additional living arrangements comments: Spiritual care concerns: No Anes - Eval Final PreProcedure Day of Procedure 04/26/25 15:21 Patient weight: overweight Heart: regular rate and rhythm Lungs: clear to auscultation Airway: Mallampati scale class II Neurological: alert and oriented Last oral intake: >/= 8 hours ASA classification: II Emergent: no Anesthetic plan: proceed Anesthesia type and monitoring: general LMA and standard monitoring Results Review: All pre-operative results and documents have been reviewed as part of the pre-operative evaluation. Informed Consent: The patient's anesthetic plan and its attendant risks and benefits were discussed with the patient/family/POA. Questions were solicited and answers provided to the satisfaction of the patient/family/POA.
[2025-04-27] VITALS (11 sets, daily range): BP systolic 119–143; BP diastolic 56–90; PULSE 51–70; RESP 12–20; TEMP 36.4–37.1; O2SAT 100
--- NOTE | 2025-04-27 04:47 | PM.IMHP ---
H&P: HPI History of Present Illness Date/Time: 04/27/25 04:47 Chief Complaint: POP Narrative: cystocele and AINSLEY. Doews not tolerate pessary Review of Systems Review of Systems: All systems reviewed & are unremarkable except as noted in HPI and below PMFSH Past Medical History Medical History (Updated 04/27/25 @ 04:49 by Viet Bentley MD) Cystocele with prolapse Pancreatitis PONV (postoperative nausea and vomiting) Hyperlipidemia Hypertension Social History Social History Smoking status: Never smoker Alcohol intake: never Substance use: never Living arrangements: with family Additional living arrangements comments: Spiritual care concerns: No Meds Home Medications and Allergies Home Medications ?Medication ?Instructions ?Recorded ?Confirmed ?Type amlodipine 2.5 mg tablet (Norvasc) 2.5 mg PO DAILY 11/27/24 02/01/25 History atorvastatin 20 mg tablet 20 mg PO HS 11/27/24 11/27/24 History meloxicam 15 mg tablet 15 mg PO DAILY pain 11/27/24 04/17/25 History Allergies Allergy/AdvReac Type Severity Reaction Status Date / Time Sulfa (Sulfonamide Allergy Intermediate rash Verified 04/17/25 15:26 Antibiotics) DAVID Inhibitors AdvReac Intermediate cough Verified 04/17/25 15:26 Exam Narrative: + urethral mobility cystocele at +3 reasonalble apical support Assessment and Plan Assessment and plan (1) Female cystocele: Code(s): N81.10 - Cystocele, unspecified Status: Acute (2) AINSLEY (stress urinary incontinence, female): Code(s): N39.3 - Stress incontinence (female) (male) Status: Acute Plan cystocele repair, urethral sling Possible sacrospinous ligament fixation depending on OR findings
--- NOTE | 2025-04-27 04:50 | WPDHPUPDATE1 ---
History and Physical Update Update Date/Time: 04/27/25 04:50 History and Physical has been reviewed, including an updated exam of the patient. There are NO changes in the patient's condition. Risks, benefits, and alternatives have been discussed and questions answered. Patient agrees to proceed with procedure.
[2025-04-27] MEDS: LACTATED RINGERS 1,000 ML 30 ML IV CONT ×3 (09:00→12:20)
[2025-04-27] MEDS: BUPIVACAINE/EPINEPHRINE 0.5% 30 ML VIAL INFILTRATE (09:40)
[2025-04-27] MEDS: ceFAZolin 2 GM/D5W 50 ML 2 GM/50 ML BAG IVPB (09:40)
--- NOTE | 2025-04-27 11:01 | W.PM.PROC2 ---
Procedure Note - Detailed Date of Procedure 04/27/25 Pre-op Diagnosis Uterine prolapse, cystocele, female perineal laxity, stress incontinence Post-op Diagnosis Same Procedure Performed Sacral spinous ligament fixation/extraperitoneal colpopexy Cystocele repair Perineoplasty Urethral sling Cystoscopy Surgeon Viet Bentley MD Anesthesia General Indications This is a woman is in wearing a pessary. She has bothersome prolapse would like it corrected. She presents for prolapse repair as well as urethral sling as she has stress incontinence. She understands risks of bleeding, infection, damage to the rectum or surrounding organs, damage to the urinary tract, dyspareunia, recurrence of prolapse, postoperative voiding dysfunction including incontinence and retention, hip and leg pain, mesh related complications, blood vessel or nerve injury, nerve pain. She agrees to proceed Findings Significant cystocele and uterine prolapse. Female perineal laxity. Urethral mobility Description of Procedure She was correctly identified. Informed consent obtained. She was brought to the operating room. She was given general anesthesia. She is prepped draped sterile fashion. She was given appropriate perioperative antibiotics. Time-out performed. I placed a [place] retractor. I placed Ferrara catheter. She had significant cystocele with loss of apical support. Her cervix came down to the hymenal ring. She had female perineal laxity. I grasped the anterior vaginal wall with Allis clamps. I infiltrated the anterior vaginal wall with local mixed with epinephrine. I made a midline vaginal incision. I dissected out laterally on the patient's right. I entered the retroperitoneal space to locate the sacral spinous ligament. I swept the rectum medially to clean off ligament. I then dissected on the contralateral side. I did enter the retroperitoneal space on that side as well. I then dissected apically all the way to the cervix. I used the Capio device. I used Ethibond suture. I placed 1 end in the sacral spinous ligament. I did this 2 fingerbreadths medial to the ischial spine. I took great care to sweep the rectum medially. I then attached the other end of the stitch into the vaginal apex at the cervix. I then performed a plication type cystocele repair. I used interrupted 0 Vicryl sutures to plicate the fascial tissues to the midline reducing the cystocele. I then trimmed excess vaginal mucosa. I then tied down my sacral spinous ligament fixation. This elevated the vaginal apex all the way to the sacral spinous ligament with excellent reduction of the prolapse. I assured hemostasis. I closed the vaginal mucosa with running 2-0 Vicryl suture. There was excellent support of the prolapse. Perineal laxity was noted. I anesthetized a dorian-shaped area of skin on the perineum. I removed this area of skin. I then performed perineoplasty with interrupted 0 Vicryl sutures. This reapproximated the perineal bodies. I took great care not to injure underlying rectum. I then closed the mucosa with a running 2-0 Vicryl suture to complete the perineal repair. I then turned my attention with urethral sling. I marked out the thigh incisions. I anesthetized the skin and made those incisions. I anesthetized the anterior vaginal wall over the mid urethra. I made a 1 cm incision. I dissected out laterally taking great care not injured the vaginal wall. I passed helical trocars. First on the right and then on the left from the thigh incision towards the vaginal incision. Sling was connected to trocars and brought out the thigh incision. I tensioned appropriately. I cut and with plastic sheaths. I then closed the incision with 2-0 Vicryl. On cystoscopy she had a large capacity bladder. There was no surgical artifact in the bladder or urethra. There was minimal trabeculations. Both ureters were seen to excrete clear yellow urine. Urethra was normal as well. I cut the excess sling material. I closed the incision with glue. She was awakened transferred to PACU in stable condition Estimated Blood Loss 100 Drains No Packing No Pathology None sent Complications No immediate complications Condition Stable Disposition PACU
[2025-04-27] MEDS: fentaNYL CITRATE INJ (*CRX) 100 MCG/2 ML VIAL 25 MCG IV PUSH ×2 (11:57→12:00)
[2025-04-27] MEDS: oxyCODONE HCL (*CRX) 5 MG TAB IR PO (13:15)
--- NOTE | 2025-04-27 14:26 | SUR.PHASEII ---
1345 - pt to bathroom with stand by assist. pt voided without difficulty
== END 2025-04-27 13:56 | disposition home or self-care (01) ==
PROVIDERS: PCP Family Medicine; Visit Provider Urology
PROC: (CPT 57240; principal; 2025-04-27 09:45)
PROC: (CPT 57288; 2025-04-27 09:45)
DX: N39.3 Stress incontinence (female) (male) (principal); N81.10 Cystocele, unspecified; N81.89 Other female genital prolapse; E78.5 Hyperlipidemia, unspecified; I10 Essential (primary) hypertension
CPT/HCPCS: 57288; 57240; A9270; C1771; J0690; J1100; J1885; J2003; J2405; J2704; J3010; J7120